=== PATIENT | female | born 1955 | race Two or more races ===

== ENCOUNTER → 2019-12-07 | Outpatient (CLI) | payer MEDICARE ==
--- NOTE | 2019-12-07 11:12 | MM ---
Reason for exam: clinical finding. Last mammogram was performed 3 years and 6 months ago. History: Patient is postmenopausal. Family history of breast cancer in sister at age 56. Indicated problem(s): palpable abnormality in the right breast. Physical Findings: Nurse Summary: 1 x 1.5cm nodule in the right breast at the nipple (nurse ts). MG Diagnostic Mammo w CAD FIDE Bilateral CC and MLO view(s) were taken. Prior study comparison: June 12, 2016, bilateral MG 3d screening mammo w/cad. May 26, 2010, bilateral diagnostic digital mammog. There are scattered fibroglandular densities. Benign appearing bilateral calcifications. No suspicious abnormality in the left breast. Right nipple and periareolar skin thickening. These results were verbally communicated with the patient and result sheet given to the patient on 12/07/19. ASSESSMENT: Incomplete: need additional imaging evaluation, BI-RAD 0 RECOMMENDATION: Ultrasound of the right breast.
--- NOTE | 2019-12-07 11:15 | USB ---
Reason for exam: additional evaluation requested from abnormal screening. History: Patient is postmenopausal. Family history of breast cancer in sister at age 56. US Breast Limited RT Right limited breast ultrasound including focal area of concern, retroareolar and axilla demonstrates a 1.8 x 0.9 x 1.1cm lobular, hypoechoic lesion at the posterior nipple for which a biopsy is recommended, a 1.5 x 1.2 x 1.1cm lymph node at the axilla and a 0.7 x 0.6 x 0.2cm lymph node at the axilla. These results were verbally communicated with the patient and result sheet given to the patient on 12/07/19. ASSESSMENT: Suspicious, BI-RAD 4 RECOMMENDATION: Surgical consultation and ultrasound core biopsy of the right breast. Punch biopsy is also recommended of the skin to evaluate for pagets of the nipple given focal thickening. Called Dr. Pandey's office with mammographic findings and has scheduled an appointment for the patient for 12/27/19 at 8:[address] Louise. Biopsy scheduled for 12/27/19 at 12:20. PRELIMINARY REPORT CALLED AND FAXED TO DR. LOUISE ON 12/07/19.
== END | disposition home or self-care (01) ==
LOC: RADMAMWWP 08:46
PROVIDERS: ATTEND Internal Medicine
DX: N64.4 Mastodynia (principal); R92.8 Other abnormal and inconclusive findings on diagnostic imaging of breast
CPT/HCPCS: 77066

== ENCOUNTER → 2020-01-31 | Outpatient (CLI) | payer MEDICARE | END | disposition home or self-care (01) | LOC: LABWHC1 08:39 | PROVIDERS: ATTEND Surgery | DX: U07.1 COVID-19 (principal) | CPT/HCPCS: 87635 ==

== ENCOUNTER → 2020-02-02 | Day surgery (SDC) | payer MEDICARE ==
[2020-02-02 10:39] VITALS: RESP 16; TEMP 97.9
[2020-02-02 11:55] VITALS: BP 164/79; PULSE 118
--- NOTE | 2020-02-13 07:19 | USB ---
US Biopsy Breast VAD RT EXAMINATION TYPE: US biopsy breast VAD RT DATE OF EXAM: 02/02/2020 CLINICAL HISTORY: R92.8, Abnormal mammogram. TECHNIQUE: Ultrasound guided core biopsy of right breast. COMPARISON: US 12/07/19 FINDINGS: The procedure of ultrasound guided core biopsy was explained to the patient. Benefits, alternatives, and risks were discussed. An informed consent was then obtained. The patient was placed in supine positioning for imaging and for the procedure. Area near nipple just below surface 4 o'clock position vague hypoechoic area measuring roughly 1.8 cm long axis redemonstrated. The overlying skin was prepped and draped in usual sterile fashion. Lidocaine was used as anesthetic into the skin and subcutaneous tissue up to area of concern in the right breast. Under ultrasound guidance, a vacuum assisted biopsy gun device was used to obtain 3 core samples. Following this, a biopsy clip was left in lesion. The patient tolerated the procedure well without any immediate complication. The patient was kept in the radiology department for short stay after the procedure and then discharged home in stable condition. IMPRESSION: Successful, uncomplicated ultrasound guided core biopsy of area of concern in the right breast, full pathology results to follow. Pathology Results: Malignant RIGHT BREAST LESION POSTERIOR TO NIPPLE, NEEDLE CORE BIOPSIES: low grade ([place] Grade 1) infiltrating lobular adenocarcinoma involving the full length of at least two needle core fragments (about 17 mm in length). Appropriately controlled immunohistochemical studied for E-cadherin are negative in the small tubular structures, calponin and p63 document an absent to incomplete myoepithelial layer consistent with infiltrating adenocarcinoma. See Surgical Pathology Cancer Case Summary. RECOMMENDATION: Surgical consultation of the right breast. JAIMEE
== END ==
LOC: RADUSWWP 09:07
PROVIDERS: ATTEND Surgery
DX: C50.111 Malignant neoplasm of central portion of right female breast (principal); Z17.0 Estrogen receptor positive status [ER+]
CPT/HCPCS: 88305; 88342; 88341; 19083; A4648; J2001

== ENCOUNTER → 2020-02-02 | Outpatient (CLI) | payer MEDICARE ==
[2020-02-02 09:27] VITALS: BP 153/80; PULSE 88; RESP 18; TEMP 98.2
--- NOTE | 2020-02-02 10:25 | P.GSHP ---
History of Present Illness H&P Date: 02/02/20 Chief Complaint: Mammographic abnormality right breast Tabitha is a female who noted a lump under her right nipple was a slight ache in her right breast. She requested a mammogram and this was [place] [id number]. This revealed benign-appearing bilateral calcifications. No suspicious abnormality was noted in the left breast right nipple and periareolar skin thickening was noted. She then had an ultrasound performed of the right breast which revealed a 1.8 x 1.1 cm lobulated lesion at the posterior nipple for which a biopsy was recommended. She was also noted to have a 1.5 cm lymph node in the axilla. The patient was referred for surgical consultation and ultrasound core biopsy of the right breast. Punch biopsy was also recommended of the skin to evaluate for Paget's of the nipple. She is not complaining of any nipple discharge. The patient has no history of any trauma or infection in the breast. She is not complaining of any changes in the left breast. Her last mammogram prior to this one was approximately 4 years ago. Family history: sister: breast cancer at 56 Hormonal History: menarche: 14 , breast fed: no, age at first : 18 menopause: 47 BCP: none hormones: none Surgical history: Left knee scraped right heel bone spur Medical history: 1.arthritis 2. Psoriasis 3.obesity 4. diabetes Social History: smoke: none alcohol: none drugs: none - Constitutional Constitutional: Denies chills, Denies fever - EENT Eyes: denies blurred vision, denies pain Ears: deny: decreased hearing, tinnitus Ears, nose, mouth and throat: Denies headache, Denies sore throat - Breasts Breasts: bilateral: as per HPI - Cardiovascular Cardiovascular: Denies chest pain, Denies shortness of breath - Respiratory Respiratory: Denies cough, Denies 7 - Gastrointestinal Gastrointestinal: Denies abdominal pain, Denies diarrhea, Denies nausea, Denies vomiting - Genitourinary (Female) Genitourinary: Denies dysuria, Denies hematuria - Menstruation Menstruation: Reports postmenopausal - Musculoskeletal Comment: arthritis - Integumentary Comment: Psoriasis - Neurological Neurological: Denies numbness, Denies weakness - Psychiatric Psychiatric: Denies anxiety, Denies depression - Endocrine Comment: diabetic, not use insulin - Hematologic/Lymphatic Comment: none - Allergic/Immunologic Allergic/Immunologic: Reports as per HPI Past Medical History Past Medical History: Diabetes Mellitus Additional Past Medical History / Comment(s): neuropathy, arthritis. History of Any Multi-Drug Resistant Organisms: None Reported Additional Past Surgical History / Comment(s): knee surgery Past Anesthesia/Blood Transfusion Reactions: No Reported Reaction Past Psychological History: No Psychological Hx Reported Smoking Status: Former smoker Past Alcohol Use History: None Reported Past Drug Use History: None Reported Medications and Allergies Home Medications Medication Instructions Recorded Confirmed Type amLODIPine [Norvasc] 5 mg PO DAILY 03/05/15 02/02/20 History metFORMIN HCL [Glucophage] 500 mg PO TID 03/05/15 02/02/20 History Methotrexate Sodium [Methotrexate] 12.5 mg PO WEEKLY 12/13/19 02/02/20 History Folic Acid 1 mg PO DAILY 02/02/20 02/02/20 History Allergies Allergy/AdvReac Type Severity Reaction Status Date / Time No Known Allergies Allergy Verified 02/02/20 09:27 Surgical - Exam Vital Signs Temp Pulse Resp BP Pulse Ox 98.2 F 88 18 153/80 98 02/02/20 09:23 02/02/20 09:23 02/02/20 09:23 02/02/20 09:23 02/02/20 09:23 BMI 40.4 - General obese - Eyes normal ocular movement - ENT no hearing loss, no congestion - Neck no masses, trachea midline - Respiratory normal respiratory effort, clear to auscultation - Cardiovascular Rhythm: regular Heart Sounds: normal: S1, S2 - Abdomen Abdomen: soft, non tender, no guarding, no rigid, no rebound - Integumentary normal turgor - Neurologic no disoriented, no combative - Musculoskeletal difficulty with ambulation - Psychiatric oriented to time, oriented to person, oriented to place, speech is normal, memory intact breast exam: BRA sports bra probably 40C inspection: Grade 3 ptosis bilaterally Right nipple swollen with some thickening of the skin at the inferior aspect Palpation: Right breast: Multiple positional exam swelling posterior to the right nipple areolar complex, skin thickening in the inferior aspect of the nipple areolar complex Right axilla: No adenopathy of concern Left breast: Multi-positional exam fibrocystic changes no dominant masses or nodules of concern Left axilla: No adenopathy of concern Results Mammogram and ultrasound reviewed Assessment and Plan Assessment: Impression: 1. Right breast posterior nipple swallowing 2. thickening of the skin in the periareolar region, inferior 3. Abnormal mammogram and ultrasound right breast 4. Diabetes 5. Arthritis Plan: 1. Punch biopsy of the skin right breast 2. Ultrasound-guided core biopsy of the right breast posterior the periareolar area 3. Possible ultrasound core biopsy of right axillary node 4. Follow-up in 1 week CC: Dr. Pandey encounter 40 minutes, > 50% of time in planning and counselling
--- NOTE | 2020-02-02 10:30 | P.PCN ---
Date of Procedure: 02/02/20 Preoperative Diagnosis: Skin thickening right nipple area over area Postoperative Diagnosis: Same Procedure(s) Performed: Punch biopsy skin right inferior nipple area 3 mm punch Anesthesia: local Surgeon: Nkechi Louise Estimated Blood Loss (ml): 1 Pathology: other (tissue from punch biopsy) Condition: stable Disposition: same day Indications for Procedure: Thickening of skin inferior to the nipple on the right in the periareolar region Operative Findings: Thickened skin/lesion posterior to the nipple area over complex in the right breast Description of Procedure: Informed consent was obtained. Risk of the procedure including bleeding and infection reaction to the anesthetic were discussed with the patient. She wished to proceed with a punch biopsy of the area of thickened skin in the right breast. Tabitha is a 64 -year-old female who presented with thickening of the skin and the inferior aspect of the right periareolar area. The area was prepped using Betadine. 5 mL of 1% lidocaine were used to anesthetize the area of concern. A 3 mm punch biopsy was utilized to obtain the specimen. Punch biopsy was obtained. The biceps appeared to be full-thickness through the skin. The patient had some minimal oozing which was cauterized using silver nitrate stick. The area was then packed. The patient tolerated the procedure in stable condition. There is no evidence of any active bleeding at the termination of the procedure. The specimen was sent to pathology. The patient will follow-up with Dr. Cheema in 1 week.
== END | disposition home or self-care (01) ==
LOC: WWCWWP 09:06
PROVIDERS: ATTEND Surgery
DX: N64.9 Disorder of breast, unspecified (principal)
CPT/HCPCS: 88305; 88341

== ENCOUNTER → 2020-02-09 | Outpatient (CLI) | payer MEDICARE ==
[2020-02-09 16:33] VITALS: BP 148/82; PULSE 90; RESP 20; TEMP 98.3
--- NOTE | 2020-02-09 17:00 | P.PN ---
Subjective Progress Note Date: 02/09/20 Principal diagnosis: Infiltrating lobular carcinoma right breast Tabitha is a 64-year-old female who presents for results of core biopsy related to breast as well as punch biopsy of the skin. Core biopsy revealed a grade 1 infiltrating lobular adenocarcinoma involving the full length of at least 2 needle core fragments about 17 mm in length. The punch biopsy of the skin was suspicious for adenocarcinoma. The patient tolerated the procedures without difficulty. Of concern is the fact that the patient had a 1.5 cm lymph node in the axilla and there is question as to whether biopsy of this should be performed as well. This will be reviewed with radiology. If this note is negative this is a stage I a lesion. The lesion is ER/FL positive HER-2/maya negative G1. Objective - Vital Signs Vital signs: Vital Signs Temp 98.3 F 02/09/20 16:28 Pulse 90 02/09/20 16:28 Resp 20 02/09/20 16:28 BP 148/82 02/09/20 16:28 Pulse Ox 97 02/09/20 16:28 Intake & Output 02/08/20 02/09/20 02/09/20 18:59 06:59 18:59 Weight 93.894 kg - Exam BMKI 40.4 - Constitutional General appearance: Present: obese - EENT Eyes: Present: EOMI ENT: Present: hearing grossly normal - Respiratory Respiratory: bilateral: CTA - Cardiovascular Rhythm: regular Heart sounds: normal: S1, S2 - Integumentary Integumentary Comment(s): Biopsy sites clean and dry no evidence of infection - Musculoskeletal Musculoskeletal: Present: gait normal - Psychiatric Psychiatric: Present: A&O x's 3, appropriate affect, intact judgment & insight Assessment and Plan Assessment: Impression/Plan: 1. Stage I a right breast infiltrating lobular carcinoma depending on no little status/we will review ultrasound with radiologist to consider if axillary node should be sampled 2. Present case at tumor board 3. Medical oncology consult 4. Radiation oncology consult 5. Follow-up next week I have discussed with the patient's surgical options which range from lumpectomy which would involve removal of the nipple areolar complex to mastectomy plus or minus reconstruction. The patient would prefer to have a lumpectomy if that is possible. She understands she would lose the nipple areolar complex. Again further recommendation to follow after evaluation of the axilla possible axillary node biopsy. CC; DR. Pandey encounter 30 minutes, > 50% of time in planning and counselling Time with Patient: Greater than 30
== END | disposition home or self-care (01) ==
LOC: WWCWWP 15:57
PROVIDERS: ATTEND Surgery
DX: Z53.9 Procedure and treatment not carried out, unspecified reason (principal)

== ENCOUNTER → 2020-02-15 | Outpatient (CLI) | payer MEDICARE ==
[2020-02-15 10:47] VITALS: BP 158/81; PULSE 91; RESP 20; TEMP 98.2
--- NOTE | 2020-02-15 11:08 | P.PN ---
Progress Note - Text Progress Note Date: 02/15/20 Tabitha is a 64-year-old female with biopsy-proven right breast cancer. At the punch biopsy site she had some stringy exudate in had some concerns regarding this. She comes in today for evaluation of the site. The site is clean and dry there is some small amount of necrotic tissue in the depth of it this was debrided. The patient is doing well with no evidence of any active infection. The patient's case is going to be presented at tumor board on Wednesday of next week. She will follow up with medical and radiation oncology. At this time she states she is feeling and she would rather have a mastectomy than the lumpectomy and she will consider this after her appointments with medical and radiation oncology. Physical exam: Examination was limited to the right breast. Punch biopsy site is clean and dry there is some mild exudate and this was debrided. The patient is reassured Impression/Plan 1. Follow up with medical oncology 2. Follow-up radiation oncology 3. Present case at tumor board 4. Follow up here to discuss surgical options after her appointments with jayda shields and radiation oncology 5. Clearance Dr. Pandey
== END | disposition home or self-care (01) ==
LOC: WWCWWP 10:31
PROVIDERS: ATTEND Surgery
DX: Z53.9 Procedure and treatment not carried out, unspecified reason (principal)

== ENCOUNTER → 2020-03-05 | Outpatient (CLI) | payer MEDICARE ==
[2020-03-05 13:03] LABS: HCT 39.3 % (34.0-46.0); HGB 12.7 gm/dL (11.4-16.0); Hypochromasia Slight; MCH 28.1 pg (25.0-35.0); MCHC 32.4 g/dL (31.0-37.0); MCV 86.8 fL (80.0-100.0); Mean Platelet Volume 7.6; Platelet Count 178 k/uL (150-450); RBC 4.52 m/uL (3.80-5.40); RDW 15.4 % (11.5-15.5); WBC 5.5 k/uL (3.8-10.6)
[2020-03-05 19:43] LABS: African American GFR (CKD) 111.6 (60.0-200.0); Albumin 4.5 g/dL (3.80-4.90); Albumin/Globulin Ratio 1.8 (1.60-3.17); Anion Gap 12.2 mmol/L (4.00-12.00); Calcium 9.6 mg/dL (8.7-10.3); Carbon Dioxide 21.8 mmol/L (21.6-31.8); Globulin 2.5 g/dL (1.6-3.3); Non-African American GFR(CKD) 96.3 (60.0-200.0); Potassium 4.2 mmol/L (3.5-5.5); Total Bilirubin 0.5 mg/dL (0.3-1.2)
[2020-03-05 21:19] LABS: Hemoglobin A1C 7.3 % (4.0-6.0)
== END | disposition home or self-care (01) ==
LOC: LABWHC1 10:33
PROVIDERS: ATTEND Internal Medicine
DX: Z01.810 Encounter for preprocedural cardiovascular examination (principal); Z01.812 Encounter for preprocedural laboratory examination; E11.9 Type 2 diabetes mellitus without complications; I10 Essential (primary) hypertension
CPT/HCPCS: 36415; 80053; 83036; 85027; 93005

== ENCOUNTER → 2020-03-15 | Outpatient (CLI) | payer MEDICARE ==
[2020-03-15 11:10] VITALS: BP 167/81; PULSE 102; RESP 20; TEMP 98.2
--- NOTE | 2020-03-15 11:32 | P.PN ---
Subjective Progress Note Date: 03/15/20 Principal diagnosis: stage 1A [id number]+/VA+/Her2-G1 Tabitha is a female who noted a lump under her right nipple was a slight ache in her right breast. She requested a mammogram and this was performed [place] [id number]. This revealed benign-appearing bilateral calcifications. No suspicious abnormality was noted in the left breast right nipple and periareolar skin thickening was noted. She then had an ultrasound performed of the right breast which revealed a 1.8 x 1.1 cm lobulated lesion at the posterior nipple for which a biopsy was recommended. She was also noted to have a 1.5 cm lymph node in the axilla. The patient was referred for surgical consultation and ultrasound core biopsy of the right breast. Punch biopsy was also recommended of the skin to evaluate for Paget's of the nipple. She is not complaining of any nipple discharge. The patient has no history of any trauma or infection in the breast. She is not complaining of any changes in the left breast. Her last mammogram prior to this one was approximately 4 years ago. She quit biopsy identified an [id number] of the area of concern in the right breast which was positive for grade 1 invasive lobular carcinoma, this was ER/VA positive and HER-2 negative. Punch biopsy of the skin was suspicious for microinvasion of the dermis. The feeling was that the axillary nodes were benign and no biopsy was recommended. Her case was presented at tumor board. The patient although initially suggesting that she would like a mastectomy has decided that she wants a central lumpectomy. It was felt she should have surgery prior to other intervention. She was seen by Dr. Montoya and had an EKG, echo, and we awaiting clearance for surgery. Family history: sister: breast cancer at 56 Hormonal History: menarche: 14 , breast fed: no, age at first : 18 menopause: 47 BCP: none hormones: none Surgical history: Left knee scraped right heel bone spur Medical history: 1.arthritis 2. Psoriasis 3.obesity 4. diabetes Social History: smoke: none alcohol: none drugs: none - Constitutional Constitutional: Denies chills, Denies fever - EENT Eyes: denies blurred vision, denies pain Ears: deny: decreased hearing, tinnitus Ears, nose, mouth and throat: Denies headache, Denies sore throat - Breasts Breasts: bilateral: as per HPI - Cardiovascular Cardiovascular: Denies chest pain, Denies shortness of breath - Respiratory Respiratory: Denies cough, Denies 7 - Gastrointestinal Gastrointestinal: Denies abdominal pain, Denies diarrhea, Denies nausea, Denies vomiting - Genitourinary (Female) Genitourinary: Denies dysuria, Denies hematuria - Menstruation Menstruation: Reports postmenopausal - Musculoskeletal Comment: arthritis - Integumentary Comment: Psoriasis - Neurological Neurological: Denies numbness, Denies weakness - Psychiatric Psychiatric: Denies anxiety, Denies depression - Endocrine Comment: diabetic, not use insulin - Hematologic/Lymphatic Comment: none - Allergic/Immunologic Allergic/Immunologic: Reports as per HPI Objective - Vital Signs Vital signs: Vital Signs Temp 98.2 F 03/15/20 11:07 Pulse 102 H 03/15/20 11:07 Resp 20 03/15/20 11:07 BP 167/81 03/15/20 11:07 Pulse Ox 98 03/15/20 11:07 Intake & Output 03/14/20 03/15/20 03/15/20 18:59 06:59 18:59 Weight 98.43 kg - Exam BMI 43.8 - Constitutional General appearance: Present: obese - EENT Eyes: Present: EOMI ENT: Present: hearing grossly normal - Neck Neck: Present: normal ROM - Respiratory Respiratory: bilateral: CTA - Cardiovascular Rhythm: regular Heart sounds: normal: S1, S2 - Gastrointestinal General gastrointestinal: Present: normal bowel sounds, soft - Integumentary Integumentary: Present: normal turgor - Psychiatric Psychiatric: Present: A&O x's 3, appropriate affect, intact judgment & insight - Additional findings Additional findings: Breast exam: BRA: sports bra ? size inspection: bilateral grade 3 ptosis palpation: right breast: lesion behind right nipple, 2 by 2 cm in size no other masses right axilla: [place] adenopathy nothing of concern Left breast: Multiple positional exam and past no dominant masses or nodules of concern Left axilla: No adenopathy of concern Assessment and Plan Assessment: Impression: 1. Right breast invasive lobular carcinoma behind the nipple complex 2. Right axillary node felt to be not suspicious 3. Patient being seen by cardiology Plan: 1. Patient's case has already been presented at tumor Board consensus is for the patient undergo a right breast central lumpectomy, sentinel node biopsy possible axillary node dissection 2. Clearance by cardiology 3. Clearance from primary care doctor Risk and benefits of procedure discussed with the patient and her daughter. They understand and agree. Risk include but are not limited to bleeding, infection, reaction to the anesthetic. There is a possibility of positive margins which would entail further resection. [place] node biopsy risk include but are not limited to bleeding, infection, reaction to the anesthetic. There is a possibility that the radioactive tracer would not travel did not identify a sentinel node. This also includes possibility of numbness of the interim, and lymphedema. Injury to the thoracodorsal and long thoracic nerves were discussed. The patient and her daughter understand and wish to proceed. Cc: Dr. Pandey encounter 25 minutes, greater than 50% of time spent in counseling and planning.
== END | disposition home or self-care (01) ==
LOC: WWCWWP 11:00
PROVIDERS: ATTEND Surgery
DX: Z53.9 Procedure and treatment not carried out, unspecified reason (principal)

== ENCOUNTER 2020-03-26 09:28 | Day surgery (SDC) | payer MEDICARE ==
[2020-03-19 08:44] VITALS: BMI 43.8
[~2020-03-26 09:28] MED LIST: DEXAMETHASONE SOD PHOSPHATE 10 MG/ML 1 ML VIAL IV ONE; HEPARIN SODIUM,PORCINE 5,000 UNIT/ML 1 ML VIAL SQ ONE; HYDROmorphone 0.5 MG/0.5 ML SYRINGE IVP PRN; LACTATED RINGERS 1,000 ML IV SCH; MIDAZOLAM 2 MG/2 ML VIAL IV PRN; ONDANSETRON 4 MG/2 ML VIAL IVP ONE; Pre Op ABX Message 1 EACH MISC MISCELLANE ONE
[2020-03-26 10:15] LABS: Glucose,Whole Blood 150 mg/dL (75-99)
[2020-03-26] MEDS ORDERED: LIDOCAINE 1% INJ 10MG/ML (20 ML MDV) SQ ONE (10:45)
[2020-03-26] MEDS ORDERED: ONDANSETRON 4 MG/2 ML VIAL ONE (11:01)
[2020-03-26] MEDS ORDERED: HEPARIN SODIUM,PORCINE 5,000 UNIT/ML 1 ML VIAL ONE (11:01)
--- NOTE | 2020-03-26 12:50 | NM ---
EXAMINATION TYPE: NM sentinel node injection DATE OF EXAM: 03/26/2020 COMPARISON: NONE HISTORY: RIGHT BREAST CA TECHNIQUE AND FINDINGS: The procedure of sentinel lymph node injection was explained to the patient. The benefits, alternatives, and risks were discussed. An informed consent was then obtained. Overlying skin is cleaned with sterile alcohol. Following this, 465 uCi Tc99m Tilmanocept was inject ed in the upper outer aspect of the RIGHT nipple intradermally. The patient tolerated the procedure well without any immediate complication. The patient was kept in the radiology department for short stay after the procedure and then taken to surgery for surgical p rocedure what is presumed intraoperative gamma probe will be used for sentinel lymph node detection. IMPRESSION: RIGHT breast radiotracer injection for sentinel node localization as above.
[2020-03-26] MEDS ORDERED: ROCURONIUM BROMIDE 10 MG/ML 5 ML VIAL IV ONE (12:54)
[2020-03-26] MEDS ORDERED: MIDAZOLAM 2 MG/2 ML VIAL ONE (12:54)
[2020-03-26] MEDS ORDERED: fentaNYL (PF) 50 MCG/ML 2 ML AMP ONE (12:54)
[2020-03-26] MEDS ORDERED: PROPOFOL 10 MG/ML 20 ML VIAL IV ONE (12:54)
[2020-03-26] MEDS ORDERED: ACETAMINOPHEN IV (For NPO) 1,000 MG/100 ML VIAL ONE (12:54)
[2020-03-26] MEDS ORDERED: SUCCINYLCHOLINE CHLORIDE 100 MG/5 ML SYR IV ONE (12:54)
[2020-03-26] MEDS ORDERED: LIDOCAINE 1% INJ 10MG/ML (20 ML MDV) ONE (12:54)
[2020-03-26] MEDS ORDERED: LACTATED RINGERS 1,000 ML IV ONE (14:26)
[2020-03-26] MEDS ORDERED: LIDOCAINE 1% (PF) 10 MG/ML (30 ML SDV) SQ ONE (14:27)
--- NOTE | 2020-03-26 14:33 | P.OP ---
Date of Procedure: 03/26/20 Preoperative Diagnosis: Right breast cancer posterior to the nipple areolar complex at 12:00 Postoperative Diagnosis: Same Procedure(s) Performed: [place] node biopsy right, central mastectomy after needle localization Anesthesia: ROSALEE Surgeon: Nkechi Louise Estimated Blood Loss (ml): 15 IV fluids (ml): 1,000 Pathology: other (Axillary node, breast tissue) Condition: stable Disposition: same day Indications for Procedure: Core biopsy-proven right breast cancer Operative Findings: The nipple areolar complex, dense breast tissue Description of Procedure: Tabitha is a 64 year old female with a core biopsy-proven right breast cancer. The location of the lesion was at 12:00 directly behind the nipple areolar complex. She was given the option of a mastectomy versus a central lumpectomy. She chose a central lumpectomy. She will also have a sentinel node biopsy. Risks and benefits of the procedure were discussed with the patient and she wished to proceed. Following needle localization of the area of concern in the right breast the patient was taken to the operating room. The right breast and axilla were prepped and draped in a sterile fashion. The axilla was approached initially. Using the neoprobe. Greatest radioactivity was identified. An incision was made over this area and the deep axillary tissues were entered. Using the neoprobe and area of increased radioactivity was identified. Using the Harmonic scalpel and the cautery device the area was excised. The radioactive count was [id number] at 10 seconds. The 10 second background count was 8. After assured that hemostasis was attained the deep tissues were closed using 3-0 Vicryl suture. Skin was closed using 4-0 Monocryl. Steri-Strips are applied. The area of the breast was approached. The area of the breast was approached. An elliptical incision was made around the nipple areolar complex including the area of the needle local wire. Circumferential dissection was performed down to the area of the pectoralis muscle. The tissue was removed intact. Radiograph of the specimen revealed that the area of concern had been removed. The specimen was painted prior to radiograph. Titanium clips were placed to asha the cavity. The deep tissues were closed using 3-0 Vicryl suture. This was followed by closure of the skin with a 3-0 Vicryl subcutaneous suture and a 4-0 Monocryl subcuticular suture. The patient tolerated the procedure in stable condition. All instrument and sponge counts were correct at the end of the case.
--- NOTE | 2020-03-26 14:34 | P.DS ---
Providers Attending physician: Nkechi Louise Primary care physician: Katherin Ruelas Plan - Discharge Summary Discharge Rx Participant: No New Discharge Prescriptions: No Action metFORMIN HCL [Glucophage] 500 mg PO TID amLODIPine [Norvasc] 5 mg PO DAILY Methotrexate Sodium [Methotrexate] 12.5 mg PO WEEKLY Folic Acid 1 mg PO DAILY Acetaminophen Tab [Tylenol Tab] 500 mg PO Q6H PRN PRN Reason: Pain Cyanocobalamin (Vitamin B-12) [Vitamin B-12] 1,000 mcg PO DAILY Discharge Medication List amLODIPine [Norvasc] 5 mg PO DAILY 03/05/15 [History] metFORMIN HCL [Glucophage] 500 mg PO TID 03/05/15 [History] Methotrexate Sodium [Methotrexate] 12.5 mg PO WEEKLY 12/13/19 [History] Folic Acid 1 mg PO DAILY 02/02/20 [History] Acetaminophen Tab [Tylenol Tab] 500 mg PO Q6H PRN 02/09/20 [History] Cyanocobalamin (Vitamin B-12) [Vitamin B-12] 1,000 mcg PO DAILY 03/19/20 [History] Follow up Appointment(s)/Referral(s): Nkechi Louise MD [STAFF PHYSICIAN] - 1 Week Activity/Diet/Wound Care/Special Instructions: Do not drive until seen by Dr. Cheema Were brought all times Patient may shower after 48 hours Discharge Disposition: HOME SELF-CARE
[2020-03-26 14:46] VITALS: TEMP 96.9
--- NOTE | 2020-03-26 15:01 | MM ---
EXAMINATION TYPE: MG surgical specimen RT, MG pre op needle loc RT DATE OF EXAM: 03/26/2020 2:35 PM COMPARISON: NONE HISTORY: Right breast CA Informed consent was obtained and all the patient's questions were answered. The lesion in question was localized mammographically. The standard sterile technique was utilized, as well as appropriate local anesthesia with 1% Lidocaine and bicarbonate. Localization needle followed by placement of a guidewire was performed under mammographic guidance. Verification images demonstrate appropriate deployment of the guidewire. The patient tolerated the procedure well and left the department in stable condition. Specimen radiograph demonstrates the clip in question to reside within the specimen. IMPRESSION: Successful needle localization and open biopsy right breast with pathology results pending . Pathology Results: Malignant A. SENTINEL LYMPH NODE, BIOPSY: One lymph node - negative for metastatic adenocarcinoma. Appropriately controlled immunohistochemical studies for cytokeratin 7 and EDGARDO are negative for metastatic adenocarcinoma. B. RIGHT AXILLARY CONTENTS, REGIONAL DISSECTION: One lymph node subtotally replaced by metastatic adenocarcinoma consistent with lobular carcinoma. C. RIGHT BREAST LUMPECTOMY: 2 x 1.5 x 1.5 cm infiltrating carcinoma identical to that previously seen in biopsy [id number]. Adenocarcinoma involves the dermis of the nipple and areola and measures about 3 cm away from the inked deep margin of resection. See Surgical Pathology Cancer Case Summary. Recommendation Surgical consult of the right breast. NIDIAD
[2020-03-26] MEDS ORDERED: HYDROmorphone 0.5 MG/0.5 ML SYRINGE IVP ONE (15:20)
[2020-03-26 15:33] VITALS: RESP 16
[2020-03-26 15:44] VITALS: BP 154/82; PULSE 77
== END 2020-03-26 16:01 | disposition home or self-care (01) ==
LOC: OR 09:28
PROVIDERS: ATTEND Surgery
DX: C50.111 Malignant neoplasm of central portion of right female breast (principal); I10 Essential (primary) hypertension; E11.9 Type 2 diabetes mellitus without complications; K21.9 Gastro-esophageal reflux disease without esophagitis; I35.0 Nonrheumatic aortic (valve) stenosis; I65.23 Occlusion and stenosis of bilateral carotid arteries; E78.00 Pure hypercholesterolemia, unspecified; E66.9 Obesity, unspecified; M19.90 Unspecified osteoarthritis, unspecified site; L40.9 Psoriasis, unspecified; Z68.41 Body mass index [BMI] 40.0-44.9, adult; Z72.0 Tobacco use; Z79.84 Long term (current) use of oral hypoglycemic drugs; Z79.899 Other long term (current) drug therapy; Z82.49 Family history of ischemic heart disease and other diseases of the circulatory system; Z80.3 Family history of malignant neoplasm of breast
CPT/HCPCS: 19301; 38525; 88342; 88307; 88341; 76098; 38792; A9520; J2250; J1644; J2001 ×2; J3010; J0131; J0330; J2704; J1170

== ENCOUNTER → 2020-04-04 | Outpatient (CLI) | payer MEDICARE ==
--- NOTE | 2020-04-04 16:34 | P.PN ---
Progress Note - Text Progress Note Date: 04/04/20 Tabitha is a 64-year-old female status post right breast [place] [id number]. Margins are negative on the lumpectomy specimen. 1 of 2 lymph nodes was replaced by metastatic adenocarcinoma. This is consistent with lobular tumor. The size of the tumor was approximately 7 mm. The patient is doing well without complaints. Physical exam: Lungs: Clear Heart: Regular rate and rhythm Incision axilla and breasts clean and dry Impression/plan: 1. Patient one node positive suspect that this will be able to be treated with radiation to the axilla will have patient see radiation oncology 2. Margins negative 3. Follow-up medical oncology 4. represent at tumor board secondary to positive node/? radiation vs further surgery CC: Dr. Pandey
[2020-04-05 10:20] VITALS: BP 155/80; PULSE 86; RESP 20; TEMP 98.4
== END | disposition home or self-care (01) ==
LOC: WWCWWP 16:28
PROVIDERS: ATTEND Surgery
DX: Z53.9 Procedure and treatment not carried out, unspecified reason (principal)

== ENCOUNTER → 2020-12-11 | Outpatient (CLI) | payer MEDICARE ==
--- NOTE | 2020-12-11 14:52 | MM ---
Reason for exam: additional evaluation requested from prior study. Last mammogram was performed 1 year ago. History: Patient is postmenopausal and has history of breast cancer at age 64. Family history of breast cancer in sister at age 56. Malignant MG pre op needle loc RT of the right breast, March 26, 2020. Lumpectomy of the right breast, March 26, 2020. Malignant US biopsy breast VAD RT of the right breast, February 02, 2020. Taking antineoplastic for 9 months. Physical Findings: Nurse did not find any significant physical abnormalities on exam. MG 3D Diag Mammo W/Cad [facility] Bilateral CC and MLO view(s) were taken. Prior study comparison: December 07, 2019, bilateral MG diagnostic mammo w CAD [facility]. June 12, 2016, bilateral MG 3d screening mammo w/cad. There are scattered fibroglandular densities. There is chronic nodularity in the left breast. Post surgical changes right breast. No significant new findings when compared with previous films. These results were verbally communicated with the patient and result sheet given to the patient on 12/11/20. ASSESSMENT: Benign, BI-RAD 2 RECOMMENDATION: Follow-up diagnostic mammogram of both breasts in 1 year.
== END ==
LOC: RADMAMWWP 13:01
PROVIDERS: ATTEND Radiology Radiation Oncology
DX: C50.111 Malignant neoplasm of central portion of right female breast (principal); Z78.0 Asymptomatic menopausal state; Z85.3 Personal history of malignant neoplasm of breast; Z80.3 Family history of malignant neoplasm of breast
CPT/HCPCS: 77066; G0279; 77062

== ENCOUNTER → 2020-12-23 | Outpatient (CLI) | payer MEDICARE ==
--- NOTE | 2020-12-23 18:47 | BD ---
EXAMINATION TYPE: Axial Bone Density DATE OF EXAM: 12/23/2020 COMPARISON: NONE CLINICAL HISTORY: 65 YR OLD FEMALE....ICD-10 CODE: C50.11 BR CA, Z79.890 POST ABHIJIT Height: 58.4 Weight: 194 FRAX RISK QUESTIONS: Glucocorticoids (More than 3mos): YES (Ex: prednisone, prednisolone, methylprednisolone, dexamethasone, and hydrocortisone). History of Fracture in Adulthood: YES RISK FACTORS HISTORY OF: HX OF RT ANKLE BREAK AN ADULT Postmenopausal woman: YES AT ABOUT 46 YRS OLD Lost more than 2 inches in height since high school: YES Hyperparathyroidism: UNKNOWN Adrenal Insufficiency: UNKNOWN MEDICATIONS: Additional Medications: BP MEDS, HX OF RADIATION, METFORMIN, STATIN FOR CHOLESTEROL, MULTIVITAMIN, T B 12, METHOTREXATE, Additional History: RT BREAST CANCER, LUMPECTOMY, RADIATION, PSORIASES, PSORIATIC ARTHRITIS, DIABETIC EXAM MEASUREMENTS: Bone mineral densitometry was performed using the [employer] System. Bone mineral density as measured about the Lumbar spine is: ----- L1-L4(G/cm2): 1.271 T Score Values are as follows: ----- L1: 0.5 ----- L2: -0.9 ----- L3: 1.9 ----- L4: 1.5 ----- L1-L4: 0.8 Bone mineral density FIRST BONE DENSITY STUDY AT [facility] Bone mineral density about the R hip (g/cm2): 0.884 Bone mineral density about the L hip (g/cm2): 0.960 T Score values are as follows: -----R Neck: -1.8 -----L Neck: -1.5 -----R Total: -1.0 -----L Total: -0.4 Bone mineral density FIRST DEXA STUDY AT [facility] FRAX%s: THERE IS A 13.1% CHANCE FOR A MAJOR OSTEOPOROTIC FX AND A 1.8% FOR HIP.....PROBABILITY FOR FX IN 10 YRS TIME IMPRESSION: Osteopenia (T Score between -2.5 and -1). There is slightly increased risk of fracture and the patient may be considered for treatment. Re-Screen 2-5 years. NOTE: T-SCORE=SD OF THE YOUNG ADULT MEAN.
== END | disposition home or self-care (01) ==
LOC: RADBDWWP 13:31
PROVIDERS: ATTEND Internal Medicine Hematology & Oncology
DX: C50.111 Malignant neoplasm of central portion of right female breast (principal); M85.89 Other specified disorders of bone density and structure, multiple sites; Z79.890 Hormone replacement therapy
CPT/HCPCS: 77080

== ENCOUNTER → 2021-07-24 | Outpatient (CLI) | payer MEDICARE ==
[2021-07-25 15:02] LABS: African American GFR (CKD) 107.6 (60.0-200.0); Anion Gap 19.7 mmol/L (4.00-12.00); BUN/Creat Ratio 15.15 Ratio (12.00-20.00); Calcium 9.8 mg/dL (8.7-10.3); Carbon Dioxide 16.7 mmol/L (21.6-31.8); Chol/HDL Ratio 3.49 Ratio; HDL Cholesterol 46.7 mg/dL (40.00-60.00); LDL Cholesterol,Calculated 81.7 mg/dL (0.0-131.0); Non-African American GFR(CKD) 92.8 (60.0-200.0); Potassium 4.2 mmol/L (3.5-5.5); VLDL Calculation 34.6 mg/dL (5.00-40.00)
== END | disposition home or self-care (01) ==
LOC: LABWHC1 14:15
PROVIDERS: ATTEND Internal Medicine
DX: E11.9 Type 2 diabetes mellitus without complications (principal); I10 Essential (primary) hypertension; E78.5 Hyperlipidemia, unspecified
CPT/HCPCS: 36415; 80048; 80061; 83036

== ENCOUNTER → 2021-12-12 | Outpatient (CLI) | payer MEDICARE ==
--- NOTE | 2021-12-17 10:09 | MM ---
Reason for exam: additional evaluation requested from prior study. Last mammogram was performed 1 year ago. History: Patient is postmenopausal and has history of breast cancer at age 64. Family history of breast cancer in sister at age 56. Malignant MG pre op needle loc RT of the right breast, March 26, 2020. Lumpectomy of the right breast, March 26, 2020. Malignant US biopsy breast VAD RT of the right breast, February 02, 2020. Taking antineoplastic for 5 years 9 months beginning at age 64. Physical Findings: A clinical breast exam by your physician is recommended on an annual basis and results should be correlated with mammographic findings. MG 3D Diag Mammo W/Cad [facility] Bilateral CC and MLO view(s) were taken. Prior study comparison: December 11, 2020, bilateral MG 3d diag mammo w/cad [facility]. December 07, 2019, bilateral MG diagnostic mammo w CAD [facility]. There are scattered fibroglandular densities. Finding: There are typically benign round, linear calcifications in both breasts, greater in the left breast. There are stable surgical changes in the right breast. Asymmetric breast tissue in the left breast is stable. There is no discrete abnormality. ASSESSMENT: Benign, BI-RAD 2 RECOMMENDATION: Follow-up diagnostic mammogram of both breasts in 1 year.
== END | disposition home or self-care (01) ==
LOC: RADMAMWWP 10:48
PROVIDERS: ATTEND Radiology Radiation Oncology
DX: R92.1 Mammographic calcification found on diagnostic imaging of breast (principal); Z85.3 Personal history of malignant neoplasm of breast; Z78.0 Asymptomatic menopausal state; Z80.3 Family history of malignant neoplasm of breast
CPT/HCPCS: 77066; G0279; 77062

== ENCOUNTER → 2022-12-28 | Outpatient (CLI) | payer MEDICARE ==
--- NOTE | 2022-12-28 15:39 | BD ---
EXAMINATION TYPE: Axial Bone Density DATE OF EXAM: 12/28/2022 CLINICAL HISTORY: 67 years old Female. ICD-10 CODE: M85.9 OSTEOPENIA Height: 58" Weight: 194.6 FRAX RISK QUESTIONS: Alcohol (3 or more units per day): No Family History (Parent hip fracture): No Glucocorticoids (More than 3mos): No (Ex: prednisone, prednisolone, methylprednisolone, dexamethasone, and hydrocortisone). History of Fracture in Adulthood: Yes, right ankle Secondary Osteoporosis: 1. Type 1 Diabetes: No 2. Hyperthyroidism: No 3. Menopause before 45: No 4. Malnutrition: No 5. Chronic liver disease: No Rheumatoid Arthritis: Yes Current Tobacco Use: No RISK FACTORS HISTORY OF: Hip Fracture (Right/Left): No Spine Fracture: No History of Wrist Fracture: No Surgery to Spine/Hip(right/left)/Wrist (right/left): No Family History of Osteoporosis: No Active: Yes Diet low in dairy products/other sources of calcium: Yes, tries not to consume dairy Postmenopausal woman: Yes Lost more than 2 inches in height since high school: Yes, was 5' Frequent falls: No Poor Health: No Hyperparathyroidism: No Adrenal Insufficiency: No MEDICATIONS: Prednisone or other steroids: No Thyroid Medications: No Osteoporosis Medications: No Additional Medications: Vitamin D, One a Day vitamin, metformin, amlodipine, anastrazole, statin for cholesterol, methotrexate, folic acid Additional History: History of breast cancer in 2019, radiation to breast EXAM MEASUREMENTS: Bone mineral densitometry was performed using the [employer] System. Bone mineral density as measured about the Lumbar spine is: ----- L1-L4(G/cm2): 1.157 T Score Values are as follows: ----- L1: -0.5 ----- L2: -1.5 ----- L3: 0.4 ----- L4: 0.5 ----- L1-L4: -0.2 Z Score Values are as follows: ----- L1: 0.3 ----- L2: -.7 ----- L3: 1.3 ----- L4: 1.3 ----- L1-L4: 0.7 Bone mineral density has: decreased -9.0% since study of: 12/23/2020 Bone mineral density about the R hip (g/cm2): 0.918 Bone mineral density about the L hip (g/cm2): 0.926 T Score values are as follows: -----R Neck: -1.7 -----L Neck: -2.3 -----R Total: -0.7 -----L Total: -0.7 Z Score values are as follows: -----R Neck: -0.6 -----L Neck: -1.3 -----R Total: -0.7 -----L Total: -0.7 Bone mineral density has: unchanged 0.0% since study of: 12/23/2020 FRAX%s: The graph provided illustrates a 13.7% chance for a major osteoporotic fx and a 2.8% chance f or the hips probability for fx in 10 years time. IMPRESSION: Osteopenia (T Score between -2.5 and -1). There is slightly increased risk of fracture and the patient may be considered for treatment. Re-Screen 2-5 years. NOTE: T-SCORE=SD OF THE YOUNG ADULT MEAN.
== END | disposition home or self-care (01) ==
LOC: RADBDWWP 09:39
PROVIDERS: ATTEND Internal Medicine Hematology & Oncology
DX: C50.011 Malignant neoplasm of nipple and areola, right female breast (principal); M85.89 Other specified disorders of bone density and structure, multiple sites; Z71.3 Dietary counseling and surveillance; E11.9 Type 2 diabetes mellitus without complications
CPT/HCPCS: 77080

== ENCOUNTER → 2022-12-28 | Outpatient (CLI) | payer MEDICARE ==
--- NOTE | 2022-12-28 10:17 | MM ---
Reason for Exam: Hx of breast cancer, conservation therapy. Last mammogram was performed 1 year(s) and 1 month(s) ago. Patient History: Menarche at age 13. First Full-Term at age 18. Postmenopausal. Breast cancer, age 64. 03/26/2020, Lumpectomy on the Right side. 03/26/2020, Malignant Core Biopsy on the right side. 02/02/2020, Malignant Core Biopsy on the right side. 2019, Radiation Therapy on the right side. Sister had breast cancer, age 56. Tissue Density: There are scattered fibroglandular densities. Findings: Analyzed By CAD. Multiple surgical clips are within the right breast. Left breast is slightly larger than the right. Findings appear stable over the interval. No suspicious groups of microcalcifications, spiculated or lobular masses, architectural distortion or other secondary signs of malignancy are mammographically apparent. Overall Assessment: Benign, BI-RAD 2 Management: Diagnostic Mammogram of both breasts in 1 year. A negative mammogram report should not preclude additional follow up of suspicious palpable abnormalities. Patient should continue monthly self breast exam. A clinical breast exam by your physician is recommended on an annual basis and results should be correlated with mammographic findings. Electronically signed and approved by: Jorge Read D.O. Radiologis
== END | disposition home or self-care (01) ==
LOC: RADMAMWWP 09:36
PROVIDERS: ATTEND Radiology Radiation Oncology
DX: R92.8 Other abnormal and inconclusive findings on diagnostic imaging of breast (principal); Z08 Encounter for follow-up examination after completed treatment for malignant neoplasm; Z85.3 Personal history of malignant neoplasm of breast; Z79.811 Long term (current) use of aromatase inhibitors; Z92.3 Personal history of irradiation; Z17.0 Estrogen receptor positive status [ER+]; Z78.0 Asymptomatic menopausal state; Z80.3 Family history of malignant neoplasm of breast
CPT/HCPCS: 77066; G0279; 77062

== ENCOUNTER → 2023-02-18 | Outpatient (CLI) | payer MEDICARE ==
[2023-02-18 21:37] LABS: Basophils # (A) 0.03 X 10*3/uL (0.00-0.10); Basophils % (A) 0.5 %; Eosinophils # (A) 0.13 X 10*3/uL (0.04-0.35); Eosinophils % (A) 2.3 %; Immature Grans, Automated 0.5 %; MCH 26.5 pg (27.0-32.0); MCHC 31.6 g/dL (32.0-37.0); MCV 84.1 fL (80.0-97.0); Monocytes # (A) 0.41 X 10*3/uL (0.20-1.00); Monocytes % (A) 7.3 %; NRBC Per 100 WBC 0 /100 WBCS (0.0-0.0); Neutrophils # (A) 4.14 X 10*3/uL (1.80-7.70); Neutrophils % (A) 73.4 %; Platelet Count 143 X 10*3/uL (140-440); RBC 4.52 X 10*6/uL (4.10-5.20); RDW 16.2 % (11.5-14.5); WBC 5.64 X 10*3/uL (4.50-10.00)
[2023-02-18 21:55] LABS: Erythrocyte Sedimentation Rate 63 mm/Hr (0-30)
[2023-02-18 22:00] LABS: ALT 33 U/L (8-44); AST 33 U/L (13-35); African American GFR (CKD) 109.1 (60.0-200.0); BUN/Creat Ratio 16.89 Ratio (12.00-20.00); Blood Urea Nitrogen 10.2 mg/dL (9.0-27.0); Calcium 10.6 mg/dL (8.7-10.3); Carbon Dioxide 20.7 mmol/L (20.0-27.5); Chloride 103 mmol/L (96-109); Chol/HDL Ratio 3.81 Ratio; Glucose 121 mg/dL (70-110); LDL Cholesterol,Calculated 96.8 mg/dL (0.0-131.0); Non-African American GFR(CKD) 94.1 (60.0-200.0); Potassium 3.9 mmol/L (3.5-5.5); Sodium 139 mmol/L (135-145)
== END | disposition home or self-care (01) ==
LOC: LABWHC1 15:01
PROVIDERS: ATTEND Internal Medicine
DX: E78.2 Mixed hyperlipidemia (principal); L40.50 Arthropathic psoriasis, unspecified
CPT/HCPCS: 36415; 80048; 80061; 84450; 84460; 85025; 85652; 86140

== ENCOUNTER → 2023-06-01 | Outpatient (CLI) | payer MEDICARE, BC ==
--- NOTE | 2023-06-02 08:30 | XR ---
EXAMINATION TYPE: XR ankle complete RT DATE OF EXAM: 06/01/2023 COMPARISON: None HISTORY: Pain and swelling TECHNIQUE: 3 view right ankle FINDINGS: There is diffuse swelling over the ankle. Ankle mortise appears intact. No acute fractures or just are evident. Secondary ossification centers may be inferior to the medial malleolus. Correlat e with location patient's pain. Avulsion is less likely. Follow-up can be performed as clinically ind icated Calcaneal heel spurs are present. IMPRESSION: 1. Diffuse soft tissue swelling over the ankle. Secondary ossification centers are likely present at the medial malleolus. This is the location of the patient's pain, avulsion could be considered poten tially within the differential. Follow-up can be performed as clinically indicated.
== END | disposition home or self-care (01) ==
LOC: RADXRMAIN 16:28
PROVIDERS: ATTEND Family Medicine
DX: M25.471 Effusion, right ankle (principal); M79.89 Other specified soft tissue disorders

== ENCOUNTER → 2023-07-19 | Outpatient (CLI) | payer MEDICARE ==
[2023-07-19 16:49] LABS: ALT 48 U/L (8-44); AST 50 U/L (13-35); BUN/Creat Ratio 16.17 Ratio (12.00-20.00); Basophils # (A) 0.02 X 10*3/uL (0.00-0.10); Basophils % (A) 0.3 %; Blood Urea Nitrogen 9.7 mg/dL (9.0-27.0); Calcium 9.9 mg/dL (8.7-10.3); Chloride 105 mmol/L (96-109); Eosinophils % (A) 1.5 %; Glucose 177 mg/dL (70-110); HCT 34.9 % (37.2-46.3); HGB 10.7 d/dL (12.0-15.0); Lymphocytes # (A) 0.97 X 10*3/uL (0.90-5.00); Lymphocytes % (A) 14.7 %; MCH 26.6 pg (27.0-32.0); MCHC 30.7 d/dL (32.0-37.0); MCV 86.8 FL (80.0-97.0); Mean Platelet Volume 10.5 FL (9.5-12.2); Monocytes # (A) 0.41 X 10*3/uL (0.20-1.00); Monocytes % (A) 6.2 %; NRBC Per 100 WBC 0 X 10*3/uL (0.00-0.01); Neutrophils # (A) 5.07 X 10*3/uL (1.80-7.70); Neutrophils % (A) 76.8 %; Platelet Count 170 X 10*3/uL (140-440); Potassium 4.2 mmol/L (3.5-5.5); RBC 4.02 X 10*6/uL (4.10-5.20); RDW 17.1 % (11.5-14.5); Sodium 142 mmol/L (135-145)
[2023-07-19 17:36] LABS: Erythrocyte Sedimentation Rate 45 mm/Hr (0-30)
== END | disposition home or self-care (01) ==
LOC: LABWHC1 11:45
PROVIDERS: ATTEND Internal Medicine Rheumatology
DX: L40.50 Arthropathic psoriasis, unspecified (principal)
CPT/HCPCS: 36415; 80048; 84450; 84460; 85025; 85652; 86140

== ENCOUNTER 2023-09-17 05:56 | Day surgery (SDC) | payer MEDICARE ==
[2023-09-14 16:33] VITALS: BMI 38.0
[2023-09-17] MEDS ORDERED: LACTATED RINGERS 1,000 ML IV SCH (06:12)
[2023-09-17 07:08] LABS: Glucose,Whole Blood 135 mg/dL (70-110)
[2023-09-17 07:09] VITALS: TEMP 98.1
[2023-09-17] MEDS ORDERED: PROPOFOL 10 MG/ML 20 ML VIAL IV ONE (07:42)
--- NOTE | 2023-09-17 08:11 | P.PCN ---
Date of Procedure: 09/17/23 Procedure(s) Performed: Brief history: Patient is a pleasant 67-year-old female scheduled for an elective upper endoscopy as well as colonoscopy as a part of evaluation of iron deficiency anemia. Procedure performed: Esophagogastroduodenoscopy with biopsy Colonoscopy Preoperative diagnosis: Iron deficiency anemia Anesthesia: MAC Procedure: After informed consent was obtained from the patient was brought into the endoscopy unit and IV sedation was administered by anesthesia under continuous monitoring. Initially upper endoscopy was done. The Olympus GF 160 video endoscope was inserted inserted into the mouth and esophagus intubated without any difficulty and was gradually advanced into the stomach and duodenum and carefully examined. The bulb and second part of the duodenum appeared normal. Biopsies were done from the duodenum to rule out celiac disease. The scope was then withdrawn into the stomach adequately insufflated with air and upon careful examination the antrum and body, had diffuse gastritis and biopsies were done from this area. Mucosa of the cardia and fundus appeared normal. The scope was then withdrawn into the esophagus. The GE junction was located at 40 cm to the incisors. It appeared regular with no erythema erosions or ulcerations. Rest of the esophagus appeared normal. Patient tolerated the procedure well. At this time the patient continued to remain sedation. Initial digital rectal examination was normal. Olympus CF 160 video colonoscope was then inserted into the rectum and gradually advanced to the cecum without any difficulty. Careful examination was performed as the scope was gradually being withdrawn. The prep was fair. The cecum, appeared normal. In the ascending colon there was a 1 cm polyp removed by snare polypectomy. Rest of the ascending colon, transverse colon, descending colon, sigmoid colon and rectum appeared normal. Scattered sigmoid diverticulosis seen. Retroflexion was performed in the rectum and small internal hemorrhoids were noted. Patient tolerated the procedure well. Impression: 1. Upper endoscopy revealed diffuse gastritis and mild duodenitis 2. Colonoscopy revealed 1 cm ascending colon polyp status post snare polypectomy, scattered sigmoid diverticulosis and small internal hemorrhoids Recommendations: Findings of this examination were discussed with the patient as well as a family. She was advised to follow with the biopsy results. If the biopsy result adenoma she can have a repeat colonoscopy in 3 years.
[2023-09-17 08:49] VITALS: BP 123/60; PULSE 68; RESP 17
== END 2023-09-17 08:50 | disposition home or self-care (01) ==
LOC: ORWHC2ENDO 05:56
PROVIDERS: ATTEND Internal Medicine Gastroenterology
DX: K29.50 Unspecified chronic gastritis without bleeding (principal); D72.820 Lymphocytosis (symptomatic); D12.2 Benign neoplasm of ascending colon; D50.9 Iron deficiency anemia, unspecified; K29.80 Duodenitis without bleeding; K57.30 Diverticulosis of large intestine without perforation or abscess without bleeding; K64.8 Other hemorrhoids; I10 Essential (primary) hypertension; E11.9 Type 2 diabetes mellitus without complications; E78.5 Hyperlipidemia, unspecified; Z79.84 Long term (current) use of oral hypoglycemic drugs; Z79.899 Other long term (current) drug therapy; Z85.3 Personal history of malignant neoplasm of breast; Z88.8 Allergy status to other drugs, medicaments and biological substances
CPT/HCPCS: 88305; 88342; 45385; 43239; J2704

== ENCOUNTER → 2023-12-30 | Outpatient (CLI) | payer MEDICARE, BC ==
--- NOTE | 2023-12-30 14:39 | MM ---
Reason for Exam: Clinical finding. Last screening mammogram was performed 12 month(s) ago. Patient History: Menarche at age 13. First Full-Term at age 18. Postmenopausal. Breast cancer, right, age 64. 03/26/2020, Lumpectomy on the Right side. 03/26/2020, Malignant Core Biopsy on the right side. 02/02/2020, Malignant Core Biopsy on the right side. 2019, Radiation Therapy on the right side. Sister had breast cancer, age 56. Tissue Density: There are scattered areas of fibroglandular density. Findings: Analyzed By CAD. Postlumpectomy changes right breast. Increased coarse calcifications noted at the lumpectomy site likely dystrophic in nature. Six-month follow-up however is recommended as a precautionary measure. Benign calcifications left breast. No evidence of mass or distortion. Overall Assessment: Probably benign, BI-RAD 3 Management: Diagnostic Mammogram of the right breast in 6 months. . Results were given to the patient verbally at the time of exam. Patient should continue monthly self-breast exams. A clinical breast exam by your physician is recommended on an annual basis. This exam should not preclude additional follow-up of suspicious palpable abnormalities. Note on Danielle scores and lifetime risk: 1. A Danielle score greater than 3% is considered moderate risk. If this is the case, consider specialist referral to assess eligibility for a risk reducing agent. 2. If overall lifetime risk for the development of breast cancer is 20% or higher, the patient may qualify for future screening with alternating mammogram and breast MRI. Electronically signed and approved by: Moises Mckeon M.D. Radiologis
== END | disposition home or self-care (01) ==
LOC: RADMAMWWP 10:51
PROVIDERS: ATTEND Radiology Radiation Oncology
DX: R92.323 Mammographic fibroglandular density, bilateral breasts (principal); Z78.0 Asymptomatic menopausal state; Z80.3 Family history of malignant neoplasm of breast
CPT/HCPCS: 77066; G0279; 77062

== ENCOUNTER → 2024-03-07 | Outpatient (CLI) | payer MEDICARE ==
--- NOTE | 2024-03-07 11:51 | US ---
EXAMINATION TYPE: US abdomen complete DATE OF EXAM: 03/07/2024 COMPARISON: Abdominal ultrasound 06/20/2015 CLINICAL INDICATION: Female, 68 years old with history of R74.8 ABNORMAL LEVELS OF OTHER SERUM ENZYME S; Elevated enzymes TECHNIQUE: Multiple sonographic images of the abdomen are obtained. FINDINGS: EXAM MEASUREMENTS: Liver Length: 16.1 cm Gallbladder Wall: 0.3 cm CBD: 0.3 cm Spleen: 14.1 cm Right Kidney: 11.3 x 5.1 x 4.7 cm Left Kidney: 7.7 x 4.7 x 4.4 cm Pancreas: Tail obscured by overlying bowel gas Liver: appears wnl Gallbladder: stones Evidence for sonographic Hoffmann's sign: no CBD: appears wnl Spleen: enlarged Right Kidney: dilated collecting system. Lobulated contour Left Kidney: appears small in size. Upper IVC: Obscured by overlying bowel gas Abd Aorta: Obscured by overlying bowel gas The liver is homogenous. The intrahepatic portion of the IVC and proximal abdominal aorta are obscur ed by overlying bowel gas. Cholelithiasis is demonstrated. No gallbladder wall thickening and surroun ding fluid. Common bile duct is unremarkable. The visualized portions of the pancreas are homogenous . The spleen is unremarkable. No left hydronephrosis. Left kidney appears small in size. Lobulated appearance of the right kidney. Prominent extrarenal pelvis on the right. No hydronephrosis of the ri ght kidney. No renal lesions are seen. IMPRESSION: 1. No ultrasound evidence of acute process. 2. Cholelithiasis without ultrasound evidence for acute cholecystitis.
== END | disposition home or self-care (01) ==
LOC: RADUSWWP 11:11
PROVIDERS: ATTEND Family Medicine
DX: K80.20 Calculus of gallbladder without cholecystitis without obstruction (principal); R74.8 Abnormal levels of other serum enzymes
CPT/HCPCS: 76700

== ENCOUNTER → 2024-07-04 | Outpatient (CLI) | payer MEDICARE ==
--- NOTE | 2024-07-04 10:59 | MM ---
Reason for Exam: Hx of breast cancer, conservation therapy. Last screening mammogram was performed 6 month(s) ago. Patient History: Menarche at age 13. First Full-Term at age 18. Postmenopausal. Breast cancer, right, age 64. 03/26/2020, Lumpectomy on the Right side. 03/26/2020, Malignant Core Biopsy on the right side. 02/02/2020, Malignant Core Biopsy on the right side. 2019, Radiation Therapy on the right side. Sister had breast cancer, age 56. Prior Study Comparison: 12/12/2021 Bilateral Diagnostic Mammogram, [facility]. 12/28/2022 Bilateral MG 3D diag mammo w/cad [facility], [facility]. 12/30/2023 Bilateral MG 3D diag mammo w/cad [facility], [facility]. Tissue Density: Right: There are scattered areas of fibroglandular density. Findings: Analyzed By CAD. Dystrophic calcifications are noted at the 12:00 position at the site of prior lumpectomy. No suspicious calcifications are seen. No evidence for mass. No skin thickening seen. Overall Assessment: Benign, BI-RAD 2 Management: Diagnostic Mammogram of both breasts in 6 months. . Results were given to the patient verbally at the time of exam. Patient should continue monthly self-breast exams. A clinical breast exam by your physician is recommended on an annual basis. This exam should not preclude additional follow-up of suspicious palpable abnormalities. Note on Danielle scores and lifetime risk: 1. A Danielle score greater than 3% is considered moderate risk. If this is the case, consider specialist referral to assess eligibility for a risk reducing agent. 2. If overall lifetime risk for the development of breast cancer is 20% or higher, the patient may qualify for future screening with alternating mammogram and breast MRI. [facility], , 07/04/2024 10:53 AM. Electronically signed and approved by: Moises Mckeon M.D. Radiologis
== END | disposition home or self-care (01) ==
LOC: RADMAMWWP 10:31
PROVIDERS: ATTEND Internal Medicine Hematology & Oncology
DX: C50.011 Malignant neoplasm of nipple and areola, right female breast
CPT/HCPCS: 77061; 77065

== ENCOUNTER → 2025-01-10 | Outpatient (CLI) | payer MEDICARE ==
--- NOTE | 2025-01-10 13:38 | MM ---
Reason for Exam: Hx of breast cancer, conservation therapy. Last screening mammogram was performed 12 month(s) ago. Patient History: Menarche at age 13. First Full-Term at age 18. Postmenopausal. Breast cancer, right, age 64. 03/26/2020, Lumpectomy on the Right side. 03/26/2020, Malignant Core Biopsy on the right side. 02/02/2020, Malignant Core Biopsy on the right side. 2019, Radiation Therapy on the right side. Sister had breast cancer, age 56. Tissue Density: There are scattered areas of fibroglandular density. Findings: Analyzed By CAD. No evidence for mass. No suspicious microcalcifications. Stable benign calcifications. Postoperative changes of right-sided lumpectomy remain stable. Overall Assessment: Benign, BI-RAD 2 Management: Diagnostic Mammogram of both breasts in 1 year. . Results were given to the patient verbally at the time of exam. Patient should continue monthly self-breast exams. A clinical breast exam by your physician is recommended on an annual basis. This exam should not preclude additional follow-up of suspicious palpable abnormalities. Note on Danielle scores and lifetime risk: 1. A Danielle score greater than 3% is considered moderate risk. If this is the case, consider specialist referral to assess eligibility for a risk reducing agent. 2. If overall lifetime risk for the development of breast cancer is 20% or higher, the patient may qualify for future screening with alternating mammogram and breast MRI. [facility], , 01/10/2025 1:16 PM. Electronically signed and approved by: Moises Mckeon M.D. Radiologis
--- NOTE | 2025-01-10 14:41 | BD ---
EXAMINATION TYPE: Axial Bone Density DATE OF EXAM: 01/10/2025 CLINICAL HISTORY: 69 years old Female. ICD-10 CODE: M859 OSTEO , Additional History: Height: 4 ft 11 in Weight: 193 FRAX RISK QUESTIONS: Alcohol (3 or more units per day): no Family History (Parent hip fracture): no Glucocorticoids (More than 3mos): no (Ex: prednisone, prednisolone, methylprednisolone, dexamethasone, and hydrocortisone). History of Fracture in Adulthood: yes Secondary Osteoporosis: 1. Type 1 Diabetes: type 2 2. Hyperthyroidism: no 3. Menopause before 45: no 4. Malnutrition: no 5. Chronic liver disease: no Rheumatoid Arthritis: yes Current Tobacco Use: no RISK FACTORS HISTORY OF: Surgery to Spine/Hip(right/left)/Wrist (right/left): no MEDICATIONS: Thyroid Medications: none Osteoporosis Medications: none EXAM MEASUREMENTS: Bone mineral densitometry was performed using the Scalado System. Bone mineral density as measured about the Lumbar spine is: ----- L1-L4(G/cm2): 1.203 T Score Values are as follows: ----- L1: -0.7 ----- L2: 0.4 ----- L3: 0.4 ----- L4: 0.5 ----- L1-L4: 0.2 Z Score Values are as follows: ----- L1: 0.2 ----- L2: 1.3 ----- L3: 1.3 ----- L4: 1.4 ----- L1-L4: 1.1 Bone mineral density has: increased 4.0 % since study of: 2022 Bone mineral density about the R hip (g/cm2): 0.776 Bone mineral density about the L hip (g/cm2): 0.762 T Score values are as follows: -----R Neck: -1.9 -----L Neck: -2.0 -----R Total: -1.2 -----L Total: -0.8 Z Score values are as follows: -----R Neck: -0.7 -----L Neck: -0.8 -----R Total: -0.4 -----L Total: 0.1 Bone mineral density has: decreased -4.7 % since study of: 2022 FRAX%s: The graph provided illustrates a 12.3 % chance for a major osteoporotic fx and a 2.2 % chance for the hips probability for fx in 10 years time. IMPRESSION: Osteopenia (T Score between -2.5 and -1). There is slightly increased risk of fracture and the patient may be considered for treatment. Re-Screen 2-5 years. NOTE: T-SCORE=SD OF THE YOUNG ADULT MEAN. [facility], , 01/10/2025 2:39 PM
== END | disposition home or self-care (01) ==
LOC: RADMAMWWP 12:55
PROVIDERS: ATTEND Internal Medicine Hematology & Oncology
DX: C50.011 Malignant neoplasm of nipple and areola, right female breast (principal); E11.9 Type 2 diabetes mellitus without complications; M85.89 Other specified disorders of bone density and structure, multiple sites; R92.323 Mammographic fibroglandular density, bilateral breasts; R92.1 Mammographic calcification found on diagnostic imaging of breast; Z78.0 Asymptomatic menopausal state; Z80.3 Family history of malignant neoplasm of breast; Z71.3 Dietary counseling and surveillance
CPT/HCPCS: 77062; 77066; 77080

== ENCOUNTER → 2025-03-21 | Outpatient (CLI) | payer MEDICARE ==
[2025-03-21 15:36] LABS: Partial Thromboplastin Time 25.5 sec (22.0-30.0); Prothrombin Time 11.3 sec (10.0-12.5)
[2025-03-21 21:52] LABS: ALT 35 U/L (8-44); AST 27 U/L (13-35); Albumin 3.9 g/dL (3.8-4.9); Albumin/Globulin Ratio 1.34 Ratio (1.60-3.17); Alkaline Phosphatase 206 U/L (41-126); BUN/Creat Ratio 21.33 Ratio (12.00-20.00); Blood Urea Nitrogen 12.8 mg/dL (9.0-27.0); Calcium 9.8 mg/dL (8.7-10.3); Carbon Dioxide 20.4 mmol/L (21.6-31.8); Chloride 105 mmol/L (96-109); Chol/HDL Ratio 2.73 Ratio; Globulin 2.9 g/dL (1.6-3.3); Glucose 186 mg/dL (70-110); LDL Cholesterol,Calculated 72.3 mg/dL (0.0-131.0); Potassium 4.2 mmol/L (3.5-5.5); Sodium 140 mmol/L (135-145); Total Bilirubin 0.3 mg/dL (0.3-1.2); Total Protein 6.8 g/dL (6.2-8.2); Vitamin B12 >1800.0 pg/mL (200.0-944.0)
--- NOTE | 2025-03-22 08:22 | XR ---
EXAMINATION TYPE: XR chest 2V DATE OF EXAM: 03/21/2025 3:28 PM COMPARISON: None. CLINICAL INDICATION: Female, 69 years old with history of Z01.818, TECHNIQUE: XR chest 2V view(s) obtained. FINDINGS: The heart size is enlarged. The pulmonary vasculature is normal. The lungs are clear. IMPRESSION: 1. Cardiomegaly. 2. No acute pulmonary process. [facility], , 03/22/2025 8:19 AM
== END | disposition home or self-care (01) ==
LOC: LABWHC1 14:50
PROVIDERS: ATTEND Orthopaedic Surgery
DX: Z01.818 Encounter for other preprocedural examination (principal); M17.11 Unilateral primary osteoarthritis, right knee; E11.65 Type 2 diabetes mellitus with hyperglycemia; I10 Essential (primary) hypertension; E78.2 Mixed hyperlipidemia; I51.7 Cardiomegaly; Z22.322 Carrier or suspected carrier of Methicillin resistant Staphylococcus aureus
CPT/HCPCS: 71046; 80053; 80061; 82306; 82607; 82746; 83036; 84443; 85610; 85730; 87070; 93005

== ENCOUNTER 2025-04-20 12:51 | Day surgery (SDC) | payer MEDICARE ==
[2025-04-17 11:24] VITALS: BMI 39.4
[~2025-04-20 12:51] MED LIST changes: +ACETAMINOPHEN TAB 500 MG TAB PO PRN; -DEXAMETHASONE SOD PHOSPHATE 10 MG/ML 1 ML VIAL IV ONE; +DEXAMETHASONE SOD PHOSPHATE 10 MG/ML 1 ML VIAL IV PRN; +DOCUSATE 100 MG CAP PO PRN; +FAMOTIDINE 20 MG/2 ML VIAL IVP PRN; -HEPARIN SODIUM,PORCINE 5,000 UNIT/ML 1 ML VIAL SQ ONE; +KETOROLAC 15 MG/ML 1 ML VIAL IVP PRN; -ONDANSETRON 4 MG/2 ML VIAL IVP ONE; +ONDANSETRON 4 MG/2 ML VIAL IVP PRN; -Pre Op ABX Message 1 EACH MISC MISCELLANE ONE; +ROPIVACAINE/EPI/CLONIDINE/KET 50 ML SYRINGE MISCELLANE PRN; +TRANEXAMIC 1,000 MG/100ML-NACL 1,000 MG in SALINE 1 100ML.BAG IV PRN; +TRANEXAMIC 1,000 MG/100ML-NACL 1,000 MG in SALINE 1 100ML.BAG IVPB PRN; +oxyCODONE ER 10 MG TAB.ER.12H PO PRN
[2025-04-20] MEDS: IV FLUID CONTINUATION 1,000 ML IV ONE (13:30)
[2025-04-20] MEDS: oxyCODONE ER 10 MG TAB.ER.12H PO PRN (13:31)
[2025-04-20 13:32] LABS: Glucose,Whole Blood 228 mg/dL (70-110)
[2025-04-20] MEDS: ACETAMINOPHEN TAB 500 MG TAB PO PRN (13:32)
[2025-04-20] MEDS: DOCUSATE 100 MG CAP PO PRN (13:32)
[2025-04-20] MEDS: ONDANSETRON 4 MG/2 ML VIAL IVP PRN ×2 (13:34→20:27)
[2025-04-20] MEDS: KETOROLAC 15 MG/ML 1 ML VIAL IVP PRN (13:35)
[2025-04-20] MEDS: FAMOTIDINE 20 MG/2 ML VIAL IVP PRN (13:35)
[2025-04-20 14:04] LABS: Basophils # (A) 0.03 10*3/uL (0.00-0.10); Basophils % (A) 0.5 %; Eosinophils # (A) 0.08 10*3/uL (0.04-0.35); Eosinophils % (A) 1.4 %; HCT 31.6 % (37.2-46.3); HGB 10.0 g/dL (12.0-15.0); Lymphocytes # (A) 0.89 10*3/uL (0.90-5.00); Lymphocytes % (A) 15.6 %; MCH 25.7 pg (27.0-32.0); MCHC 31.6 g/dL (32.0-37.0); MCV 81.2 fL (80.0-97.0); Monocytes # (A) 0.39 10*3/uL (0.20-1.00); Monocytes % (A) 6.8 %; Neutrophils # (A) 4.29 10*3/uL (1.80-7.70); Neutrophils % (A) 75.3 %; Platelet Count 157 10*3/uL (140-440); RBC 3.89 10*6/uL (4.10-5.20); RDW 14.6 % (11.5-14.5); WBC 5.70 10*3/uL (4.50-10.00)
[2025-04-20] MEDS: MIDAZOLAM 2 MG/2 ML VIAL IV ONE (14:04)
--- NOTE | 2025-04-20 14:05 | P.ANPRN ---
Procedure Note - Anesthesia - Nerve Block Performed Right iPack Single Time Out Performed: Yes Date of Procedure: 04/20/25 Procedure Start Time: 13:50 Procedure Stop Time: 13:55 Location of Patient: PreOp Indication: Acute Post-Operative Pain, Analgesia, Requested by Surgeon Sedation Type: Sedate with meaningful contact maintained Preparation: Sterile Prep Position: Left Lateral Needle Types: Pajunk Needle Gauge: 21 Ultrasound used to visualize needle placement: Yes Ultrasound used to observe medication spread: Yes Injectate: 0.5% Ropivacaine (see comment for volume) (Ropivacaine 20 mL plus Decadron 4 mg) Blood Aspirated: No Pain Paresthesia on Injection Noted: No Resistance on Injection: Normal Image Stored and Saved: Yes Events: Uneventful and Well Tolerated
--- NOTE | 2025-04-20 14:06 | P.ANPRN ---
Procedure Note - Anesthesia - Nerve Block Performed Right Adductor Canal Single Time Out Performed: Yes Date of Procedure: 04/20/25 Procedure Start Time: 13:55 Procedure Stop Time: 14:00 Location of Patient: PreOp Indication: Acute Post-Operative Pain, Analgesia, Requested by Surgeon Sedation Type: Sedate with meaningful contact maintained Preparation: Sterile Prep Position: Supine Catheter: None Needle Types: Pajunk Needle Gauge: 21 Ultrasound used to visualize needle placement: Yes Ultrasound used to observe medication spread: Yes Injectate: 0.5% Ropivacaine (see comment for volume) (Ropivacaine 20 mL plus Decadron 4 mg) Blood Aspirated: No Pain Paresthesia on Injection Noted: No Resistance on Injection: Normal Image Stored and Saved: Yes Events: Uneventful and Well Tolerated
[2025-04-20] MEDS ORDERED: fentaNYL (PF) 50 MCG/ML 2 ML AMP ONE (15:10)
[2025-04-20] MEDS ORDERED: ROPIVACAINE 5 MG/ML 30 ML VIAL ONE (15:10)
[2025-04-20] MEDS ORDERED: LIDOCAINE 1% INJ 10MG/ML (20 ML MDV) ONE (15:10)
[2025-04-20] MEDS ORDERED: HYDROmorphone (PF) 1 MG/ML ONE (15:10)
[2025-04-20] MEDS ORDERED: PROPOFOL 10 MG/ML 20 ML VIAL IV ONE (15:10)
[2025-04-20] MEDS ORDERED: SUCCINYLCHOLINE CHLORIDE 200 MG/10 ML VIAL IV ONE (15:10)
[2025-04-20] MEDS ORDERED: DEXAMETHASONE SOD PHOSPHATE 4 MG/ML 1 ML VIAL ONE (15:10)
[2025-04-20] MEDS ORDERED: TRANEXAMIC 1,000 MG/100ML-NACL PREMIX BAG ONE (15:10)
[2025-04-20] MEDS ORDERED: MIDAZOLAM 2 MG/2 ML VIAL ONE (15:10)
[2025-04-20] MEDS ORDERED: PHENYLEPHRINE 10 MG/ML VIAL ONE (15:10)
[2025-04-20] MEDS: ROPIVACAINE/EPI/CLONIDINE/KET 50 ML SYRINGE MISCELLANE PRN (15:13)
[2025-04-20] MEDS: LACTATED RINGERS 1,000 ML IV ONE (16:10)
[2025-04-20] MEDS: VANCOMYCIN 1,000 MG VIAL MISCELLANE ONE (16:41)
[2025-04-20] MEDS ORDERED: MAGNESIUM HYDROXIDE 2,400 MG/30 ML CUP PO PRN (17:07)
[2025-04-20] MEDS ORDERED: HYDROmorphone 1 MG/ML 1 ML SYRINGE IVP PRN (17:07)
[2025-04-20] MEDS ORDERED: HYDROcodone/APAP 5-325MG 1 EACH TAB PO PRN (17:07)
[2025-04-20] MEDS ORDERED: HYDROmorphone 0.5 MG/0.5 ML SYRINGE IVP PRN (17:07)
[2025-04-20] MEDS ORDERED: NALOXONE 0.4 MG/ML 1 ML VIAL IV PRN (17:07)
[2025-04-20] MEDS ORDERED: NA PHOS,M-B/NA PHOS,DI-BA 133 ML ENEMA RECTAL PRN (17:07)
--- NOTE | 2025-04-20 17:34 | P.OP ---
Date of Procedure: 04/20/25 Preoperative Diagnosis: 1. Severe right knee arthritis 2. DM2, preoperative A1C 7.5 3. Psoriasis 4. BMI 39 Postoperative Diagnosis: Same Procedure(s) Performed: 1. Right total knee arthroplasty 2. Computer assisted musculoskeletal navigation using CT/MRI images 3. Application of negative pressure incisional wound VAC, DMI, right knee, <50 sq cm, incision 15 cm Implants: 1. [employer] CR Femur Size #2 2. [employer] [place] Tibial Base Size #1 with 12x50 stem 3. [place] [employer] CS poly Size #1, 9-mm 4. [place] [employer] all poly patella, Size #29 Anesthesia: ROSALEE, regional Surgeon: Roge Hampton Animal Care Worker #1: Brenna Gayle Estimated Blood Loss (ml): 100 IV fluids (ml): 800 Pathology: none sent Condition: stable Disposition: PACU Indications for Procedure: I met with the patient preoperatively in the office setting and discussed treatment of their symptomatic knee arthritis. They failed a long course of nonsurgical treatment and elected to proceed with an elective total knee replacement. I discussed the potential risks and complications at length and gave them ample time to ask questions. Risks discussed included: risks from anesthesia, superficial site surgical infection, acute and/or chronic periprosthetic joint infection, delayed wound healing, drainage, wound necrosis, instability, stiffness, stiffness requiring manipulation and/or revision surgery, damage to local blood vessels or nerves, aseptic loosening of the implants, extensor mechanism issues including disruption, patellar maltracking, avascular necrosis etc., continued or worsened knee pain, generalized dissatisfaction with surgical outcome, need for revision surgery, an inability to regain preinjury level of function, DVT, PE, other medical complications, and possibly loss of life or limb. The patient voiced their understanding that while these are the most common complications other less common complications are possible. They provided both their verbal and written consent to go forward with surgery. Operative Findings: Severe tri-compartmental knee arthritis, large effusion, and inflamed synovium Description of Procedure: The patient was identified in preoperative holding and the correct operative extremity was verified and marked with a marker. I reviewed the consent form with the patient at length. All of their questions were answered. The patient was given a block by anesthesia. They were then brought back to the operating room. They were transferred onto the operating room table where a general anesthetic, preoperative antibiotics, and tranexamic acid were administered by anesthesia. A tourniquet was applied to the proximal aspect of the operative extremity. The contralateral extremity was padded under the heel and secured to the operating room table with a nonsterile blue towel and tape. The ipsilateral arm was carefully draped across the patient's chest and secured with a pillow and foam. A post was applied over the lateral aspect of the ipsilateral thigh and a bolster was placed under the ipsilateral foot. I verified that the operative extremity was stable and the knee was flexed to 90. The operative extremity was then placed in a leg hastings, nonsterile drapes were applied, and the extremity was prepped and draped sterilely in the standard sterile fashion. Prior to starting surgery timeout was performed identifying the correct patient, operative extremity, and procedure. The leg was then elevated, exsanguinated with an Esmarch bandage, and the tourniquet was inflated. An anterior midline incision was made sharply with a scalpel. Once I had dissected deep to the superficial fascial layer medial and lateral flaps were elevated. A medial parapatellar arthrotomy was created. Upon opening the knee joint there were diffuse arthritic changes in all 3 compartments. The anterior horn of the medial meniscus were sharply released and a medial release was performed around the posterior medial corner of the knee to facilitate retractor placement. The fat pad was excised with electrocautery. Remnants of the ACL and PCL were then excised from the notch. 4 mm pins were then placed within the incision in the medial distal femur and proximal tibia. Arrays were applied to the pins and I verified they were completely tightened. The knee was then registered with the [employer] robot and manipulations in implant position were made to balance the knee and opitmize implant position. Using the [employer] robotic saw all cuts were made in accordance with our plan. After all bony fragments had been removed the cuts were verified with the planar probe. The tibia was then subluxed forward and sized. The knee was brought into flexion and a lamina embroiderer was placed to allow removal of the meniscal remnants both medially and laterally as well as posterior osteophytes. Local anesthetic was then infiltrated around the joint capsule. Trial implants were then placed within t he knee. Range of motion and collateral ligament tension was then evaluated. Adjustments in implant size and position were then made accordingly. Once the knee was felt to be appropriately balanced the Declan pins were removed. The patella was then cut, sized, and punched. A trial patellar button was then placed. With the trial components in place, the patella tracked midline. The femur was then drilled and the trial component removed. The trial tibial component was then appropriately rotated, pinned, and prepared for the keel. All trial components were then removed from the knee. The knee was thoroughly irrigated with pulsatile lavage. Cement was prepared via vacuum mixing in a bowl on the back table. Once the cement had reached appropriate consistency, I hand pressurized cement into the tibia and gently impacted the tibial implant into place. Cement was carefully removed from around the tibial tray and the poly liner was tapped into placed, engaging the locking mechanism. The femur was then exposed and cement was hand pressurized into the cut surfaces. The femoral implant was gently tapped into place and cement was carefully removed. A wet lap sponge was used to wipe down the bearing surface of the femur and the knee was extended to further pressurize cement. With the knee extended, cement was pressurized into the cut surface of the patella and the patella button was placed and compressed with a clamp. All extruded cement was removed including from the pin sites. The knee was held in extension until the cement had fully hardened. Once the cement had hardened the knee was evaluated one final time with the final polyethylene liner in place. The knee had full extension and flexion and felt stable to varus and valgus stress throughout the arc of motion. The tourniquet was released and with the tourniquet down the patella tracked midline. All bleeders were controlled with electrocautery. The knee was then soaked for 3 minutes with a dilute Betadine soak. The knee was thoroughly irrigated using 3 L of sterile saline and pulsatile lavage. 2 gram of Vancomycin powder was placed in the joint. The extensor mechanism was then reapproximated using pop off Vicryl sutures followed by a running barbed suture. The knee was then closed in layers with a 0 strata fix for the deep fascial layer, 2-0 strata fix for the superficial subcutaneous layer and Monocryl and Steri-Strips for the skin. An incisional wound VAC was applied. I verified that all instrument, sponge, and sharp counts were correct. The patient was then transferred off the operating room table, extubated, and brought to recovery having tolerated the procedure well. Brenna Gayle NP was required as a skilled assistant research scientist due to the complexity of surgery for patient positioning, draping, exposure, retraction, closure of wound and application of dressing. PLAN: The patient can weight-bear as tolerated on the operative extremity. DVT prophylaxis with aspirin 81 mg twice a day based on preoperative risk stratification. Follow-up in the office in 2 weeks for wound check and x-rays of the knee including an AP and lateral.
--- NOTE | 2025-04-20 18:01 | XR ---
EXAMINATION TYPE: XR knee limited RT DATE OF EXAM: 04/20/2025 CLINICAL HISTORY: Postoperative evaluation Two views of the right knee are submitted. Identified are changes of total knee arthroplasty with femoral and tibial components appearing well seated. Postsurgical soft tissue changes are noted. Alignment is anatomic. [facility], , 04/20/2025 5:58 PM
[2025-04-20] MEDS: LACTATED RINGERS 1,000 ML IV SCH (19:38)
[2025-04-20] MEDS: ASPIRIN 81 MG PO SCH (22:09)
[2025-04-20] MEDS: SENNOSIDES-DOCUSATE SODIUM 1 EACH TAB PO SCH (22:09)
[2025-04-21] MEDS: HYDROcodone/APAP 7.5-325MG 1 EACH TAB PO PRN (04:59)
--- NOTE | 2025-04-21 09:40 | P.PN ---
Subjective Doing well this morning. Pain controlled. Has been up walking to the bathroom several times. Objective - Vital Signs Vital signs: Vital Signs Temp 97.8 F 04/21/25 07:08 Pulse 86 04/21/25 07:08 Resp 18 04/21/25 07:08 BP 134/72 04/21/25 07:08 Pulse Ox 92 L 04/21/25 07:08 FiO2 Intake & Output 04/20/25 04/21/25 04/21/25 18:59 06:59 18:59 Intake Total 1550 1650 Output Total 100 Balance 1450 1650 Weight 88.5 kg Intake: IV 1550 Oral 1650 Output: Estimated Blood Loss 100 Other: Voiding Method Toilet # Voids 5 - Exam Resting in bed. AAOx3 Right LE: Prevena wound VAC intact with good seal. Small amount of bleeding seen in sponge distally. Thigh/calf soft. Femoral nerve function intact. Moves foot and ankle up and down. Foot WWP with brisk CR. - Labs CBC & Chem 7: 04/20/25 13:15 Labs: Abnormal Lab Results - Last 24 Hours (Table) 04/20/25 04/20/25 Range/Units 13:15 13:31 RBC 3.89 L (4.10-5.20) 10*6/uL Hgb 10.0 L (12.0-15.0) g/dL Hct 31.6 L (37.2-46.3) % MCH 25.7 L (27.0-32.0) pg MCHC 31.6 L (32.0-37.0) g/dL Lymphocytes # 0.89 L (0.90-5.00) 10*3/uL POC Glucose (mg/dL) 228 H (70-110) mg/dL Assessment and Plan Assessment: POD#1 s/p Right TKA Plan: 1. Weightbearing as tolerated on the operative extremity. Up with assistance and a walker. 2. DVT prophylaxis with aspirin 81 mg twice a day 3. Physical therapy for gait training and mobilization 4. Leave surgical dressing in place. 5. Internal medicine for perioperative medical management 6. Disposition: Will tentatively plan to keep for additional 24 hours for observation due to h/o falls prior to surgery and to re-assess dressing tomorrow due to small amount of bleeding around VAC (if continued bleeding will change VAC).
[2025-04-21 10:01] LABS: Basophils # (A) 0.01 X 10*3/uL (0.00-0.10); Basophils % (A) 0.2 %; Eosinophils # (A) 0 X 10*3/uL (0.04-0.35); Eosinophils % (A) 0 %; HCT 28.7 % (37.2-46.3); HGB 8.6 g/dL (12.0-15.0); Immature Grans, Automated 0.50 %; Lymphocytes # (A) 0.59 X 10*3/uL (0.90-5.00); Lymphocytes % (A) 9.4 %; MCH 25.1 pg (27.0-32.0); MCHC 30.0 g/dL (32.0-37.0); MCV 83.9 FL (80.0-97.0); Monocytes # (A) 0.31 X 10*3/uL (0.20-1.00); Monocytes % (A) 4.9 %; NRBC Per 100 WBC 0 X 10*3/uL (0.00-0.01); Neutrophils # (A) 5.33 X 10*3/uL (1.80-7.70); Neutrophils % (A) 85.0 %; Platelet Count 159 X 10*3/uL (140-440); RBC 3.42 X 10*6/uL (4.10-5.20); RDW 14.5 % (11.5-14.5); WBC 6.27 X 10*3/uL (4.50-10.00)
[2025-04-21] MEDS: amLODIPine 5 MG TAB PO SCH (13:51)
[2025-04-21] MEDS: FERROUS SULFATE 325 MG TAB PO SCH (13:51)
[2025-04-21] MEDS: metFORMIN 500 MG TAB PO SCH (13:51)
[2025-04-21] MEDS ORDERED: DEXTROSE 50% SYRINGE 50 ML IVP PRN ×2 (14:06)
[2025-04-21 14:21] LABS: Glucose,Whole Blood 411 mg/dL (70-110)
[2025-04-21] MEDS: INSULIN LISPRO (HumaLOG) 100 UNIT/ML 10 mL VL SQ SCH (14:28)
[2025-04-21] MEDS: ANASTROZOLE 1 MG TAB PO SCH (14:30)
[2025-04-21 16:33] LABS: Glucose,Whole Blood 238 mg/dL (70-110)
[2025-04-21] MEDS: HYDROcodone/APAP 10-325MG 1 EACH TAB PO PRN (18:56)
[2025-04-21] MEDS: HYDROmorphone 0.5 MG/0.5 ML SYRINGE IVP PRN (20:56)
[2025-04-21] MEDS: ATORVASTATIN 10 MG TAB PO SCH (20:57)
[2025-04-21] MEDS: LOSARTAN 25 MG TAB PO SCH (20:57)
[2025-04-21] MEDS: DOXYCYCLINE 100 MG TABLET PO SCH (20:57)
[2025-04-21 22:02] LABS: Glucose,Whole Blood 183 mg/dL (70-110)
[2025-04-21] MEDS: INSULIN GLARGINE (LANTUS) 100 UNIT/ML SYR SQ SCH (22:30)
--- NOTE | 2025-04-22 01:14 | CONS ---
CONSULTATION REASON FOR CONSULTATION: Advice regarding diabetes mellitus and other medical issues, requested by orthopedics. HISTORY OF PRESENT ILLNESS: This is a 69-year-old woman with a past medical history of multiple medical problems including diabetes mellitus, type 2. Underwent right total knee joint arthroplasty. The patient has some bleeding around the site. The patient also had elevated blood sugars up to 400. The patient apparently has stopped taking the metformin recently. There is no history of any fever, rigors, chills at this time. PAST MEDICAL HISTORY: Reviewed include diabetes mellitus type 2, history of hypertension, rheumatoid arthritis. Rest of the chart and rest of history are reviewed. HOME MEDICATIONS: Reviewed, include metformin. Doses and rest of medications reviewed. ALLERGIES: Jardiance. FAMILY HISTORY: History of breast cancer in the family. SOCIAL HISTORY: Remote history of smoking. REVIEW OF SYSTEMS: A 14-point review of systems negative except as mentioned earlier. PHYSICAL EXAMINATION: VITAL SIGNS: Pulse is 86, blood pressure 130/70, respirations 18. CHEST: Clear to auscultation. CARDIOVASCULAR: S1, S2. ABDOMEN: Soft. NERVOUS SYSTEM: No focal deficits. EXTREMITIES: Examination of knee, status post arthroplasty. LABORATORY DATA: Reviewed. Glucose 411. ASSESSMENT: 1. Status post right total knee joint arthroplasty. 2. Diabetes mellitus, type 2, uncontrolled with hyperglycemia. 3. Anemia. 4. Hypertension. 5. History of rheumatoid arthritis. 6. History of peripheral neuropathy. 7. History of pacemaker. RECOMMENDATIONS AND DISCUSSION: This 69-year-old woman presented with multiple complex medical issues. We will monitor the patient closely. I would recommend initiate Lantus, small units 15 units and also monitor blood sugars closely and hemoglobin A1c. Resume the home medications. Repeat labs. We will follow the patient closely with you. Hold off the supplement vitamins, which the patient is taking. MMODL / IJN: [id number] /
[2025-04-22 06:47] LABS: Glucose,Whole Blood 221 mg/dL (70-110)
[2025-04-22] MEDS: CALCIUM CARB-VIT D 500 MG-5 MCG TAB PO SCH (09:06)
[2025-04-22 09:42] LABS: Basophils # (A) 0.03 X 10*3/uL (0.00-0.10); Basophils % (A) 0.4 %; Eosinophils # (A) 0.06 X 10*3/uL (0.04-0.35); Eosinophils % (A) 0.8 %; HCT 27.1 % (37.2-46.3); HGB 8.1 g/dL (12.0-15.0); Immature Grans, Automated 0.40 %; Lymphocytes # (A) 0.92 X 10*3/uL (0.90-5.00); Lymphocytes % (A) 13.0 %; MCH 25.2 pg (27.0-32.0); MCHC 29.9 g/dL (32.0-37.0); MCV 84.2 FL (80.0-97.0); Monocytes # (A) 0.59 X 10*3/uL (0.20-1.00); Monocytes % (A) 8.3 %; NRBC Per 100 WBC 0 X 10*3/uL (0.00-0.01); Neutrophils # (A) 5.47 X 10*3/uL (1.80-7.70); Neutrophils % (A) 77.1 %; Platelet Count 153 X 10*3/uL (140-440); RBC 3.22 X 10*6/uL (4.10-5.20); RDW 14.7 % (11.5-14.5); WBC 7.10 X 10*3/uL (4.50-10.00)
--- NOTE | 2025-04-22 09:48 | P.PN ---
Progress Note - Text Patient seen this morning. More painful today. Bleeding through wound VAC appears unchanged since yesterday. Dressing changed - minimal active bleeding, incision intact. New wound VAC sponge applied, hooked up with good seal. ROHIT wrap applied for compression. Will keep until tomorrow due to elevated blood sugars. If blood sugars stable tomorrow and pain controlled will plan for d/c home.
[2025-04-22 11:07] LABS: ALT 25 U/L (8-44); AST 19 U/L (13-35); Albumin 3.3 g/dL (3.8-4.9); Albumin/Globulin Ratio 1.22 Ratio (1.60-3.17); Alkaline Phosphatase 134 U/L (41-126); Anion Gap 13.90 mmol/L (4.00-12.00); BUN/Creat Ratio 24.33 Ratio (12.00-20.00); Blood Urea Nitrogen 14.6 mg/dL (9.0-27.0); Calcium 9.0 mg/dL (8.7-10.3); Carbon Dioxide 19.1 mmol/L (21.6-31.8); Chloride 104 mmol/L (96-109); Globulin 2.7 g/dL (1.6-3.3); Glucose 169 mg/dL (70-110); Potassium 3.8 mmol/L (3.5-5.5); Sodium 137 mmol/L (135-145); Total Protein 6.0 g/dL (6.2-8.2)
[2025-04-22 11:55] LABS: Glucose,Whole Blood 187 mg/dL (70-110)
[2025-04-22] MEDS: INSULIN GLARGINE (LANTUS) 100 UNIT/ML SYR SQ SCH (12:58)
[2025-04-22 17:12] LABS: Glucose,Whole Blood 189 mg/dL (70-110)
[2025-04-22 20:40] LABS: Glucose,Whole Blood 210 mg/dL (70-110)
--- NOTE | 2025-04-23 03:25 | PN ---
PROGRESS NOTE DATE OF SERVICE: 04/22/2025 SUBJECTIVE: This 69-year-old woman was admitted after knee surgery and had uncontrolled diabetes with sugars for more than 400. I recommended Lantus insulin, but the patient refused Lantus because last time when the medications are adjusted, the patient had apparently ended up with pacemaker according to her. The patient was scared. Hemoglobin A1c is 8.1, so I recommended the addition of p.o. small dose of glyburide to the addition of the metoprolol. The patient again declined that also because the patient is concerned. Currently, the patient on insulin scale with some control of the blood sugars. I have recommended to resume and continue the medication as above. PAST MEDICAL HISTORY: Reviewed. REVIEW OF SYSTEMS: Fourteen-point review of systems negative. CURRENT MEDICATIONS: Reviewed. PHYSICAL EXAM: VITAL SIGNS: Pulse is 91, blood pressure 119/67, and respirations 16. HEENT: Conjunctivae normal. NECK: No JVD, CARDIOVASCULAR: S1, S2. ABDOMEN: Soft. LEGS: Status post knee surgery. LABS: Other labs are noted. ASSESSMENT: 1. Status post right total knee arthroplasty. 2. Diabetes mellitus type 2, uncontrolled with hyperglycemia. 3. Anemia. 4. Hypertension. 5. History of rheumatoid arthritis. 6. History of peripheral neuropathy. 7. Pacemaker. RECOMMENDATIONS: Recommend to continue current medication management and symptomatic treatment. I spent quite some time in convincing the patient, but however, at this time, the patient is extremely concerned about taking any other extra medications. Apparently, the primary physician has been altering the medications at this time. I would recommend to continue the current medications, and follow up with the primary physician. Accu-Cheks a.c. and at bedtime. Insulin scale supplement and repeat labs. The patient is currently stable, but overall prognosis guarded. Further recommendations to follow. MMODL / IJN: [id number] /
[2025-04-23 06:52] LABS: Glucose,Whole Blood 203 mg/dL (70-110)
--- NOTE | 2025-04-23 07:47 | P.DS ---
Providers Date of admission: Friday 04/20 Attending physician: Roge Hampton Consults: 04/20/25 17:07 Consult Physician Routine Consulting Provider: Kaila Montoya Consult Reason/Comments: medical management Do you want consulting provider notified?: Yes Primary care physician: [facility], [place] Course: Admitted after elective right TKA. Did well. Kept 48 hours for pain control and diabetes management. Seen POD #3 and was doing well. Wound VAC intact with good seal and no drainage. Cleared for d/c home pending evaluation by PT and IM. d/c meds sent from office: ron major, aspirin 81 bid x 4 weeks, omeprazole. Patient Condition at Discharge: Good Plan - Discharge Summary Discharge Rx Participant: No New Discharge Prescriptions: New Doxycycline Monohydrate 100 mg PO BID #30 cap No Action amLODIPine [Norvasc] 5 mg PO QAM Cyanocobalamin (Vitamin B-12) [Vitamin B-12] 1,000 mcg PO DAILY Atorvastatin [Lipitor] 10 mg PO HS Ferrous Sulfate [Iron (65 MG Elemental)] 325 mg PO DAILY Anastrozole [Arimidex] 1 mg PO DAILY Vitamin D (Unknown Dose) 1 dose PO DAILY Vitamin C (Unknown Dose) 1 dose PO DAILY Acetaminophen (Unknown Dose) 1 dose PO DIRECTED PRN PRN Reason: Pain Aleve (Unknnown Dose) 1 dose PO DIRECTED PRN PRN Reason: Pain Losartan [Cozaar] 25 mg PO HS metFORMIN HCL 1,000 mg PO BID Ozempic (Unknown Dose) 1 dose SQ WE Calcium (Unknown Dose) 1 dose PO QAM Discharge Medication List amLODIPine [Norvasc] 5 mg PO QAM 03/05/15 [History] Cyanocobalamin (Vitamin B-12) [Vitamin B-12] 1,000 mcg PO DAILY 03/19/20 [History] Anastrozole [Arimidex] 1 mg PO DAILY 06/14/23 [History] Atorvastatin [Lipitor] 10 mg PO HS 06/14/23 [History] Ferrous Sulfate [Iron (65 MG Elemental)] 325 mg PO DAILY 06/14/23 [History] Losartan [Cozaar] 25 mg PO HS 06/14/23 [History] Ozempic (Unknown Dose) 1 dose SQ WE 09/14/23 [History] Vitamin C (Unknown Dose) 1 dose PO DAILY 09/14/23 [History] Vitamin D (Unknown Dose) 1 dose PO DAILY 09/14/23 [History] metFORMIN HCL 1,000 mg PO BID 09/14/23 [History] Acetaminophen (Unknown Dose) 1 dose PO DIRECTED PRN 04/17/25 [History] Aleve (Unknnown Dose) 1 dose PO DIRECTED PRN 04/17/25 [History] Calcium (Unknown Dose) 1 dose PO QAM 04/17/25 [History] Doxycycline Monohydrate 100 mg PO BID #30 cap 04/21/25 [Rx] Follow up Appointment(s)/Referral(s): Roge Hampton MD [Medical Doctor] - 2 Weeks Activity/Diet/Wound Care/Special Instructions: 1. Weight-bear as tolerated on your operative extremity unless instructed otherwise. Use a walker or other assistive device to ambulate. 2. Leave surgical dressing in place. If your dressing becomes saturated with blood, there is drainage, or the dressing becomes loose please contact the office. 3. It is okay to shower with your surgical dressing, but do not submerge in water (no hot tubs, bath's, swimming etc.) 4. Make sure to take her blood clot prevention medication as prescribed (aspirin, Eliquis, Xarelto, and Plavix are commonly prescribed medications for blood clot prevention) 5. While taking [place] or Percocet for pain make sure you're taking a stool softener (Colace) and drink lots of water. 6. Keep all follow-up appointments as scheduled. You will usually be seen in 1-2 weeks following surgery. 7. Please contact the office with any questions or concerns [phone] Discharge Disposition: HOME WITH HOME HEALTH SERVICES
[2025-04-23 07:59] LABS: Basophils # (A) 0.03 X 10*3/uL (0.00-0.10); Basophils % (A) 0.5 %; Eosinophils # (A) 0.13 X 10*3/uL (0.04-0.35); Eosinophils % (A) 2.0 %; HCT 27.5 % (37.2-46.3); HGB 8.2 g/dL (12.0-15.0); Immature Grans, Automated 0.80 %; Lymphocytes # (A) 0.99 X 10*3/uL (0.90-5.00); Lymphocytes % (A) 15.1 %; MCH 25.0 pg (27.0-32.0); MCHC 29.8 g/dL (32.0-37.0); MCV 83.8 FL (80.0-97.0); Monocytes # (A) 0.59 X 10*3/uL (0.20-1.00); Monocytes % (A) 9.0 %; NRBC Per 100 WBC 0 X 10*3/uL (0.00-0.01); Neutrophils # (A) 4.77 X 10*3/uL (1.80-7.70); Neutrophils % (A) 72.6 %; Platelet Count 165 X 10*3/uL (140-440); RBC 3.28 X 10*6/uL (4.10-5.20); RDW 15.0 % (11.5-14.5); WBC 6.56 X 10*3/uL (4.50-10.00)
[2025-04-23 08:28] LABS: Anion Gap 10.50 mmol/L (4.00-12.00); BUN/Creat Ratio 22.67 Ratio (12.00-20.00); Blood Urea Nitrogen 13.6 mg/dL (9.0-27.0); Calcium 9.1 mg/dL (8.7-10.3); Carbon Dioxide 22.5 mmol/L (21.6-31.8); Chloride 104 mmol/L (96-109); Glucose 153 mg/dL (70-110); Potassium 4.3 mmol/L (3.5-5.5); Sodium 137 mmol/L (135-145)
[2025-04-23 08:51] VITALS: BP 148/71; PULSE 92; RESP 17; TEMP 98.3
--- NOTE | 2025-04-25 23:24 | P.PN ---
Subjective Progress Note Date: 04/23/25 This is a pleasant 69-year-old female who was recently admitted by orthopedics for right knee arthroplasty with significant history of diabetes being closely monitored and scheduled for discharge home today. Patient reports pain is managed at current regimen and will continue per orthopedic recommendations. Patient was able to work with physical therapy and will be going home with home care being arranged. Patient is currently afebrile with no reports of chest pain or shortness of breath. Incentive spirometer at the bedside and encouraged to use at least 10 times every hour while awake. Recommend outpatient follow-up with primary care provider on discharge as well. Review of systems: Constitutional: No reports of fatigue, fever, or chills Cardiovascular: No reports of chest pain or palpitations Respiratory: No reports of shortness of breath or cough GI: No reports of nausea, no reports of vomiting, no diarrhea : No reports of dysuria or retention Neurovascular: reports of generalized weakness, reports mild right knee pain All medications have been reviewed PHYSICAL EXAMINATION: GENERAL: The patient is alert and oriented x4, Well developed, well nourished. Obese HEENT: Pupils are round and equally reacting to light. EOMI. no scleral icterus. No conjunctival pallor. Normocephalic, atraumatic. No pharyngeal erythema. No thyromegaly. CARDIOVASCULAR: S1 and S2 muffled PULMONARY: diminished breath sounds bilaterally with no wheezing or rhonchi noted. ABDOMEN: soft. Nontender on exam. obese. non-distended, normoactive bowel sounds. No palpable organomegaly. MUSCULOSKELETAL: No joint swelling or deformity. EXTREMITIES: No cyanosis, clubbing, or pedal edema. Right knee surgical dressing is dry and intact with some minimal swelling noted NEUROLOGICAL: Gross neurological examination did not reveal any focal deficits. Diffuse weakness SKIN: No rashes. Assessment: Post right total knee arthroplasty Diabetes mellitus, type II, uncontrolled with hyperglycemia History of anemia Hypertension history History of rheumatoid arthritis Obesity with a BMI 39.4 History of peripheral neuropathy pacemaker history GI prophylaxis DVT prophylaxis Full code Plan: Recommend to continue with current medications and management per orthopedic services. Patient has been seen and evaluated by PT/OT therapy recommending home with home care and is being discharged today Encouraged incentive spirometer use at least 10 times every hour while awake including taking home and continuing to use Appropriate home medications resumed and recommend to continue monitoring Accu- Cheks before meals and at bedtime and use sliding scale as needed. Patient tolerating diet with no reports of nausea or vomiting noted. Recommend outpatient follow-up with primary care provider and tight glycemic control. Patient is medically stable for discharge once cleared by orthopedics Due to multiple medical issues, overall prognosis is guarded Thank you kindly for this consultation. We will continue to follow with orthopedics during hospitalization The impression and plan of care has been dictated by Dianne Urena, nurse practitioner as directed. Dr. Jan MD I have performed a history and examination and MDM of this patient, discussed the same with the dictator, and agree with the dictator's assessment and plan as written ,documented as a scribe. Based on total visit time, I have performed more than 50% of the visit. Any additional findings or plans will be noted. Objective - Vital Signs Vital signs: Vital Signs Temp 98.3 F 04/23/25 07:14 Pulse 92 04/23/25 07:50 Resp 17 04/23/25 07:50 BP 148/71 04/23/25 07:14 Pulse Ox 95 04/23/25 07:14 FiO2 - Labs CBC & Chem 7: 04/23/25 02:38 04/23/25 02:38
== END 2025-04-23 09:44 | disposition home health service (06) ==
LOC: OR 12:51 → 4SSUR 17:25 → OR 04-23 09:44
PROVIDERS: ATTEND Orthopaedic Surgery
DX: M17.11 Unilateral primary osteoarthritis, right knee (principal); G89.18 Other acute postprocedural pain; I10 Essential (primary) hypertension; E11.65 Type 2 diabetes mellitus with hyperglycemia; E11.42 Type 2 diabetes mellitus with diabetic polyneuropathy; E78.2 Mixed hyperlipidemia; I44.2 Atrioventricular block, complete; I65.23 Occlusion and stenosis of bilateral carotid arteries; I35.0 Nonrheumatic aortic (valve) stenosis; M06.9 Rheumatoid arthritis, unspecified; D64.9 Anemia, unspecified; L40.9 Psoriasis, unspecified; H91.90 Unspecified hearing loss, unspecified ear; Z79.811 Long term (current) use of aromatase inhibitors; Z79.84 Long term (current) use of oral hypoglycemic drugs; Z79.85 Long-term (current) use of injectable non-insulin antidiabetic drugs; Z79.899 Other long term (current) drug therapy; Z87.891 Personal history of nicotine dependence; Z85.3 Personal history of malignant neoplasm of breast; Z95.0 Presence of cardiac pacemaker; Z82.49 Family history of ischemic heart disease and other diseases of the circulatory system
CPT/HCPCS: 0055T; 27447; 64447; 64473; 80048; 85025